=== PATIENT | male | born 1960 | race Caucasian/White ===

== ENCOUNTER 2023-12-07 15:42 | Emergency (ER) | payer MEDICAID, SELFPAY ==
[2023-12-07 15:44] VITALS: BP 107/67; PULSE 76; RESP 18; TEMP 36.9; O2SAT 96; BMI 30.4
--- NOTE | 2023-12-07 15:50 | ED_ITS ---
Documented by User: Justin Yung DO 12/08/23 06:20 HPI - Alcohol 2 General: Chief Complaint: Alcohol Stated Complaint: etoh Time Seen by Provider: 12/07/23 15:50 Source: patient Mode of arrival: EMS History of Present Illness: 63-year-old highly intoxicated male [facility] emergency room via EMS admits to drinking heavily today also admits to drinking on a fairly regular basis. States he was drinking today because of his chronic back pain trying to make it go away he does have a bruise on the left anterior hip. He denies falling. He had called EMS on 911 he states he could not walk but he had walked out to the yard was sitting in the yard when they arrived and walked to the ambulance cot. I observed him self transferring from the ambulance cot to the ER gurney as well. He denies chest pain or shortness of breath. MD complaint: alcohol intoxication Last drink: Just [employer] Chronic alcohol use: Yes Course 2 Vital Signs: Vital signs: Vital Signs Temperature 98.4 F 12/07/23 15:44 Pulse Rate 80 12/07/23 18:22 Respiratory Rate 18 12/07/23 18:22 Blood Pressure 96/63 12/07/23 16:09 Pulse Oximetry 98 12/07/23 18:22 Oxygen Delivery Me thod Room Air 12/07/23 18:22 MDM - Alcohol Medical Decision Making Care signed out to Dr. Nuñez at change of shift. See final notes for diagnosis and disposition. Patient lab work revealed his alcohol level significant elevated at approximately 422. Otherwise findings were pretty benign. He had a chest x- ray, lumbar x-ray and pelvis x-ray all which showed no acute findings. Urinalysis and urine drug screen were negative. Patient be discharged if he can find a ride. Lab Data 12/07/23 16:15 12/07/23 16:15 Radiology Impressions Chest X-Ray 12/07/23 15:55 IMPRESSION: No acute findings. Lumbar Spine X-Ray 12/07/23 15:58 IMPRESSION: No acute findings. Pelvis X-Ray 12/07/23 15:58 IMPRESSION: No acute findings. Laboratory Results WBC 9.99 10^3/uL (3.29-11.43) 12/07/23 16:15 RBC 3.56 10^6/uL (3.85-5.65) L 12/07/23 16:15 Hgb 12.90 g/dL (11.27-16.99) 12/07/23 16:15 Hct 36.4 % (37-53) L 12/07/23 16:15 MCV 102.2 fl (82-101) H 12/07/23 16:15 MCH 36.2 pg (27-33) H 12/07/23 16:15 MCHC 35.4 g/dL (30-55) 12/07/23 16:15 RDW 16.7 % (12.1-15.1) H 12/07/23 16:15 Plt Count 380 10^3/cmm (157-399) 12/07/23 16:15 MPV 9.4 fL (7.4-10.4) 12/07/23 16:15 Neut % (Auto) 51.4 % 12/07/23 16:15 Lymph % (Auto) 36.0 % 12/07/23 16:15 [place] % (Auto) 9.9 % 12/07/23 16:15 Eos % (Auto) 1.4 % 12/07/23 16:15 Baso % (Auto) 1.1 % 12/07/23 16:15 Neut # (Auto) 5.13 10^3/uL (1.8-7.7) 12/07/23 16:15 Lymph # (Auto) 3.6 10^3/uL (0.8-4.8) 12/07/23 16:15 [place] # (Auto) 1.0 10^3/uL (0.2-0.9) H 12/07/23 16:15 Eos # (Auto) 0.1 10^3/uL (0.0-0.8) 12/07/23 16:15 Baso # (Auto) 0.1 10^3/uL (0.0-0.1) 12/07/23 16:15 Nucleated RBC % (auto) 0 % 12/07/23 16:15 Nucleated RBCs # 0.0 /100WBC 12/07/23 16:15 PT 12.80 SECONDS (12.1-14.9) 12/07/23 16:15 INR 0.93 (0.8-1.2) 12/07/23 16:15 APTT 29.4 SECONDS (23.9-36.7) 12/07/23 16:15 Sodium 140 mmol/L (136-145) 12/07/23 16:15 Potassium 3.8 mmol/L (3.5-5.1) 12/07/23 16:15 Chloride 102 mmol/L (98-107) 12/07/23 16:15 Carbon Dioxide 26 mmol/L (22-29) 12/07/23 16:15 Anion Gap 15.8 (5-19) 12/07/23 16:15 BUN 8 mg/dL (8-23) 12/07/23 16:15 Creatinine 0.5 mg/dL (0.7-1.2) L 12/07/23 16:15 GFR Calculation 167.9 mL/min (90-130) H 12/07/23 16:15 Glucose 100 mg/dL (65-115) 12/07/23 16:15 Calculated Osmolality 288 mOsm/kg (285-295) 12/07/23 16:15 Calcium 8.6 mg/dL (8.5-10.5) 12/07/23 16:15 Total Bilirubin 0.2 mg/dL (0.15-1.2) 12/07/23 16:15 AST 28 U/L (0-40) 12/07/23 16:15 ALT 21 U/L (0-41) 12/07/23 16:15 Alkaline Phosphatase 63 U/L (40-130) 12/07/23 16:15 Ammonia 29 umol/L (16-60) 12/07/23 16:15 Total Protein 6.6 g/dL (6.6-8.7) 12/07/23 16:15 Albumin 3.9 g/dL (3.5-5.2) 12/07/23 16:15 Globulin 2.7 g/dL (1.3-4.6) 12/07/23 16:15 Urine Color Yellow (Yellow) 12/07/23 17:43 Urine Appearance Clear (CLEAR) 12/07/23 17:43 Urine pH 5 (5-7) 12/07/23 17:43 Ur Specific [place] 1.015 (1.005-1.030) 12/07/23 17:43 Urine Protein Neg (Negative) 12/07/23 17:43 Urine Glucose (UA) Norm (Normal) 12/07/23 17:43 Urine Ketones Negative (Negative) 12/07/23 17:43 Urine Blood Neg (Negative) 12/07/23 17:43 Urine Nitrate Negative (Negative) 12/07/23 17:43 Urine Bilirubin Neg (Negative) 12/07/23 17:43 Urine Urobilinogen Norm mg/dL (Negative) 12/07/23 17:43 Ur Leukocyte Esterase Negative (Negative) 12/07/23 17:43 Salicylates 0.8 mg/dL (3-10) L 12/07/23 16:15 Urine Opiates Screen Negative ng/mL (Negative) 12/07/23 17:43 Acetaminophen < 5.0 ug/mL (10-30) L 12/07/23 16:15 Ur Barbiturates Screen Negative ng/mL (Negative) 12/07/23 17:43 Ur Phencyclidine Scrn Negative ng/mL (Negative) 12/07/23 17:43 Ur Amphetamines Screen Negative ng/mL (Negative) 12/07/23 17:43 U Benzodiazepines Scrn Negative ng/mL (Negative) 12/07/23 17:43 Urine Cocaine Screen Negative ng/mL (Negative) 12/07/23 17:43 U Marijuana (THC) Screen Negative ng/mL (Negative) 12/07/23 17:43 Ethyl Alcohol 422 mg/dL (0-10) H* 12/07/23 16:15 All radiology interpretation(s) finalized by discharge Discharge Plan Discharge Patient Disposition: Home Clinical Impression: Alcoholic intoxication Condition: Stable Prescriptions: No Action erythromycin 5 mg/gram (0.5 %) ointment 1 applic ophthalmic (eye) Q6H 7 Days Qty: 7 1RF Discharge Orders: Discharge ED (Routine); Ordered 12/07/23 Ordered By: Ciro Nuñez Patient Instructions: Alcohol Intoxication (ED) Activity Restrictions/Additional Instructions: Please limit the use of alcohol. Please follow-up with your family practice physician within the next 7 days for further evaluation and treatment if needed. Coding Level of Care Code ED Dispensing Audiologist for Chg Fwd Documented by User: Ciro StonetDO 12/07/23 18:57 HPI - Alcohol 2 General: Chief Complaint: Alcohol Stated Complaint: etoh Time Seen by Provider: 12/07/23 15:50 Review of Systems 2 General: Reports: 10 or more systems reviewed and unremarkable except in HPI and below Physical Exam 2 Const: COMMON NORMALS: no acute distress, average body habitus, patient oriented x3, no limitations, healthy appearing, alert and well nourished Neck/C-Spine: COMMON NORMALS: no JVD Chest: COMMONS NORMALS: normal inspection of the chest and normal palpation of entire chest wall Resp: COMMON NORMALS: normal respiratory effort, No retractions, No use of accessory muscles and clear to auscultation bilaterally AUSCULTATION: clear to auscultation bilaterally Cardio: COMMON NORMALS: no JVD, regular rate, regular rhythm, S1 normal heart sound present, S2 normal heart sound present, No gallops present (Cardio), No clicks present (Cardio), No murmurs present (Cardio) and No rub (Cardio) R ATE: regular rate RHYTHM: regular rhythm HEART SOUNDS: S1 normal heart sound present and S2 normal heart sound present GI: COMMON NORMALS: Normal to inspection, nondistended, normoactive bowel sounds present, Soft to palpation, non-tender, No hepatosplenomegaly present and no masses PALPATION: Yes Soft to palpation and Yes No hepatosplenomegaly present Neuro: COMMON NORMALS: patient oriented x3 SENSORIUM/ORIENTATION: Yes alert Course 2 Vital Signs: Vital signs: Vital Signs Temperature 98.4 F 12/07/23 15:44 Pulse Rate 80 12/07/23 18:22 Respiratory Rate 18 12/07/23 18:22 Blood Pressure 96/63 12/07/23 16:09 Pulse Oximetry 98 12/07/23 18:22 Oxygen Delivery Me thod Room Air 12/07/23 18:22 MDM - Alcohol Medical Decision Making Patient lab work revealed his alcohol level significant elevated at approximately 422. Otherwise findings were pretty benign. He had a chest x- ray, lumbar x-ray and pelvis x-ray all which showed no acute findings. Urinalysis and urine drug screen were negative. Patient be discharged if he can find a ride. Lab Data 12/07/23 16:15 12/07/23 16:15 Radiology Impressions Chest X-Ray 12/07/23 15:55 IMPRESSION: No acute findings. Lumbar Spine X-Ray 12/07/23 15:58 IMPRESSION: No acute findings. Pelvis X-Ray 12/07/23 15:58 IMPRESSION: No acute findings. Laboratory Results WBC 9.99 10^3/uL (3.29-11.43) 12/07/23 16:15 RBC 3.56 10^6/uL (3.85-5.65) L 12/07/23 16:15 Hgb 12.90 g/dL (11.27-16.99) 12/07/23 16:15 Hct 36.4 % (37-53) L 12/07/23 16:15 MCV 102.2 fl (82-101) H 12/07/23 16:15 MCH 36.2 pg (27-33) H 12/07/23 16:15 MCHC 35.4 g/dL (30-55) 12/07/23 16:15 RDW 16.7 % (12.1-15.1) H 12/07/23 16:15 Plt Count 380 10^3/cmm (157-399) 12/07/23 16:15 MPV 9.4 fL (7.4-10.4) 12/07/23 16:15 Neut % (Auto) 51.4 % 12/07/23 16:15 Lymph % (Auto) 36.0 % 12/07/23 16:15 [place] % (Auto) 9.9 % 12/07/23 16:15 Eos % (Auto) 1.4 % 12/07/23 16:15 Baso % (Auto) 1.1 % 12/07/23 16:15 Neut # (Auto) 5.13 10^3/uL (1.8-7.7) 12/07/23 16:15 Lymph # (Auto) 3.6 10^3/uL (0.8-4.8) 12/07/23 16:15 [place] # (Auto) 1.0 10^3/uL (0.2-0.9) H 12/07/23 16:15 Eos # (Auto) 0.1 10^3/uL (0.0-0.8) 12/07/23 16:15 Baso # (Auto) 0.1 10^3/uL (0.0-0.1) 12/07/23 16:15 Nucleated RBC % (auto) 0 % 12/07/23 16:15 Nucleated RBCs # 0.0 /100WBC 12/07/23 16:15 PT 12.80 SECONDS (12.1-14.9) 12/07/23 16:15 INR 0.93 (0.8-1.2) 12/07/23 16:15 APTT 29.4 SECONDS (23.9-36.7) 12/07/23 16:15 Sodium 140 mmol/L (136-145) 12/07/23 16:15 Potassium 3.8 mmol/L (3.5-5.1) 12/07/23 16:15 Chloride 102 mmol/L (98-107) 12/07/23 16:15 Carbon Dioxide 26 mmol/L (22-29) 12/07/23 16:15 Anion Gap 15.8 (5-19) 12/07/23 16:15 BUN 8 mg/dL (8-23) 12/07/23 16:15 Creatinine 0.5 mg/dL (0.7-1.2) L 12/07/23 16:15 GFR Calculation 167.9 mL/min (90-130) H 12/07/23 16:15 Glucose 100 mg/dL (65-115) 12/07/23 16:15 Calculated Osmolality 288 mOsm/kg (285-295) 12/07/23 16:15 Calcium 8.6 mg/dL (8.5-10.5) 12/07/23 16:15 Total Bilirubin 0.2 mg/dL (0.15-1.2) 12/07/23 16:15 AST 28 U/L (0-40) 12/07/23 16:15 ALT 21 U/L (0-41) 12/07/23 16:15 Alkaline Phosphatase 63 U/L (40-130) 12/07/23 16:15 Ammonia 29 umol/L (16-60) 12/07/23 16:15 Total Protein 6.6 g/dL (6.6-8.7) 12/07/23 16:15 Albumin 3.9 g/dL (3.5-5.2) 12/07/23 16:15 Globulin 2.7 g/dL (1.3-4.6) 12/07/23 16:15 Urine Color Yellow (Yellow) 12/07/23 17:43 Urine Appearance Clear (CLEAR) 12/07/23 17:43 Urine pH 5 (5-7) 12/07/23 17:43 Ur Specific [place] 1.015 (1.005-1.030) 12/07/23 17:43 Urine Protein Neg (Negative) 12/07/23 17:43 Urine Glucose (UA) Norm (Normal) 12/07/23 17:43 Urine Ketones Negative (Negative) 12/07/23 17:43 Urine Blood Neg (Negative) 12/07/23 17:43 Urine Nitrate Negative (Negative) 12/07/23 17:43 Urine Bilirubin Neg (Negative) 12/07/23 17:43 Urine Urobilinogen Norm mg/dL (Negative) 12/07/23 17:43 Ur Leukocyte Esterase Negative (Negative) 12/07/23 17:43 Salicylates 0.8 mg/dL (3-10) L 12/07/23 16:15 Urine Opiates Screen Negative ng/mL (Negative) 12/07/23 17:43 Acetaminophen < 5.0 ug/mL (10-30) L 12/07/23 16:15 Ur Barbiturates Screen Negative ng/mL (Negative) 12/07/23 17:43 Ur Phencyclidine Scrn Negative ng/mL (Negative) 12/07/23 17:43 Ur Amphetamines Screen Negative ng/mL (Negative) 12/07/23 17:43 U Benzodiazepines Scrn Negative ng/mL (Negative) 12/07/23 17:43 Urine Cocaine Screen Negative ng/mL (Negative) 12/07/23 17:43 U Marijuana (THC) Screen Negative ng/mL (Negative) 12/07/23 17:43 Ethyl Alcohol 422 mg/dL (0-10) H* 12/07/23 16:15 Discharge Plan Discharge Patient Disposition: Home Clinical Impression: Alcoholic intoxication Condition: Stable Prescriptions: No Action erythromycin 5 mg/gram (0.5 %) ointment 1 applic ophthalmic (eye) Q6H 7 Days Qty: 7 1RF Discharge Orders: Discharge ED (Routine); Ordered 12/07/23 Ordered By: Ciro Nuñez Patient Instructions: Alcohol Intoxication (ED) Activity Restrictions/Additional Instructions: Please limit the use of alcohol. Please follow-up with your family practice physician within the next 7 days for further evaluation and treatment if needed. Coding Level of Care Code ED Dispensing Audiologist for Fidel Dorman
--- NOTE | 2023-12-07 15:55 | XRR_ITS ---
PROCEDURE INFORMATION: Exam: XR Chest Exam date and time: 12/07/2023 4:33 PM Age: 63 years old Clinical indication: Cough and dyspnea; Additional info: Dyspnea/cough TECHNIQUE: Imaging protocol: Radiologic exam of the chest. Views: 1 view. COMPARISON: CR XR chest 1V [id number] 07/17/2018 9:55 PM FINDINGS: Lungs: Unremarkable. No consolidation. Pleural spaces: Unremarkable. No pleural effusion. No pneumothorax. Heart/Mediastinum: Unremarkable. No cardiomegaly. Bones/joints: Unremarkable. XR/XR chest 1V portable [id number] IMPRESSION: No acute findings.
--- NOTE | 2023-12-07 15:58 | XRR_ITS ---
PROCEDURE INFORMATION: Exam: XR Lumbosacral Spine Exam date and time: 12/07/2023 4:33 PM Age: 63 years old Clinical indication: Injury or trauma; Other: Fall; Patient HX: ETOH. Patient called EMS because he could not walk. patient was waiting for ambulance in the yard when they arrived. PT states he wanted to be checked out for everything. ETOH on board, strong odor from patient TECHNIQUE: Imaging protocol: Radiologic exam of the lumbosacral spine. Views: 2 or 3 views. COMPARISON: CR (PELVIS, ) 12/07/2023 4:33 PM FINDINGS: Bones/joints: Normal. No acute fracture. Normal alignment. Soft tissues: Unremarkable. XR/XR lumbar spine 2-3V* [id number] IMPRESSION: No acute findings.
--- NOTE | 2023-12-07 15:58 | XRR_ITS ---
PROCEDURE INFORMATION: Exam: XR Pelvis Exam date and time: 12/07/2023 4:33 PM Age: 63 years old Clinical indication: Injury or trauma; Fall; Injury details: ETOH. Patient called EMS because he could not walk. patient was waiting for ambulance in the yard when they arrived. PT states he wanted to be checked out for everything. ETOH on board, strong odor from patient TECHNIQUE: Imaging protocol: Radiologic exam of the pelvis. Views: 1 or 2 view. COMPARISON: CR XR lumbar spine 2-3V* [id number] 12/07/2023 4:33 PM FINDINGS: Bones/joints: Unremarkable. No acute fracture. Soft tissues: Unremarkable. XR/XR pelvis 1-2V* [id number] IMPRESSION: No acute findings.
[2023-12-07 16:09] VITALS: BP 96/63; PULSE 74; RESP 16; O2SAT 96
[2023-12-07 16:20] LABS: Basophils # 0.1 10^3/uL (0.0-0.1); Basophils % 1.1 %; Eosinophils # 0.1 10^3/uL (0.0-0.8); Eosinophils % 1.4 %; Hematocrit 36.4 % (37-53); Lymphocytes # 3.6 10^3/uL (0.8-4.8); Mean Corpuscular HGB Conc 35.4 g/dL (30-55); Mean Corpuscular Hemoglobin 36.2 pg (27-33); Mean Corpuscular Volume 102.2 fl (82-101); Mean Platelet Volume 9.4 fL (7.4-10.4); Monocytes % 9.9 %; Neutrophils # 5.13 10^3/uL (1.8-7.7); Neutrophils % 51.4 %; Nucleated Red Blood Cells % 0 %; Platelet Count 380 10^3/cmm (157-399); Red Blood Count 3.56 10^6/uL (3.85-5.65); Red Cell Distribution Width 16.7 % (12.1-15.1); White Blood Count 9.99 10^3/uL (3.29-11.43)
[2023-12-07 16:35] LABS: INR 0.93 (0.8-1.2)
[2023-12-07 16:36] LABS: Partial Thromboplastin Time 29.4 SECONDS (23.9-36.7)
[2023-12-07 16:45] LABS: Ammonia 29 umol/L (16-60)
[2023-12-07 16:47] LABS: Alanine Aminotransferase 21 U/L (0-41); Albumin Level 3.9 g/dL (3.5-5.2); Alkaline Phosphatase 63 U/L (40-130); Anion Gap 15.8 (5-19); Aspartate Amino Transferase 28 U/L (0-40); Blood Urea Nitrogen 8 mg/dL (8-23); Calcium 8.6 mg/dL (8.5-10.5); Carbon Dioxide 26 mmol/L (22-29); Chloride 102 mmol/L (98-107); Creatinine Clr Calc Pharmacy 165.3943; Globulin 2.7 g/dL (1.3-4.6); Glomerular Filtration Rate 167.9 mL/min (90-130); Glucose 100 mg/dL (65-115); Osmolality Calculated 288 mOsm/kg (285-295); Potassium 3.8 mmol/L (3.5-5.1); Salicylate 0.8 mg/dL (3-10); Sodium 140 mmol/L (136-145); Total Bilirubin 0.2 mg/dL (0.15-1.2); Total Protein 6.6 g/dL (6.6-8.7)
[2023-12-07 16:51] LABS: Acetaminophen < 5.0 ug/mL (10-30)
[2023-12-07 16:55] LABS: Alcohol Level 422 mg/dL (0-10)
[2023-12-07 18:03] LABS: Add Urine Microscopic? NO; Charge for UA Resulting for Rev
[2023-12-07 18:10] LABS: Urine Appearance Clear (CLEAR); Urine Color Yellow (Yellow)
[2023-12-07 18:11] LABS: Bilirubin Urine Neg (Negative); Blood Urine Neg (Negative); Glucose Urine UA Norm (Normal); Ketones Urine Negative (Negative); Leukocyte Esterase Urine Negative (Negative); Nitrate Urine Negative (Negative); Protein Urine Neg (Negative); Specific Gravity, Urine 1.015 (1.005-1.030); Urobilinogen Urine Norm (Negative); pH Urine 5 (5-7)
[2023-12-07 18:19] LABS: Amphetamines Screen Urine Negative (Negative); Barbiturates Screen Urine Negative (Negative); Benzodiazepines Screen Urine Negative (Negative); Cocaine Screen Urine Negative (Negative); Opiate Screen Urine Negative (Negative); PCP Screen Urine Negative (Negative); THC Screen Urine Negative (Negative)
[2023-12-07 18:22] VITALS: PULSE 80; RESP 18; O2SAT 98
== END 2023-12-07 20:26 | disposition home or self-care (01) ==
PROVIDERS: Family Medicine; Emergency Provider Emergency Medicine
DX: F10.129 Alcohol abuse with intoxication, unspecified (principal); Y90.8 Blood alcohol level of 240 mg/100 ml or more
CPT/HCPCS: 36415; 71045; 72100; 72170; 80053; 80306; 80307; 81003; 82140; 85025; 85610; 85730; 99284

== ENCOUNTER 2024-10-23 12:11 | Emergency (ER) | payer MEDICAID, SELFPAY ==
[2024-10-23 12:14] VITALS: BP 147/72; PULSE 89; RESP 16; TEMP 36.8; O2SAT 96; BMI 27.3
[2024-10-23 13:20] LABS: Basophils % 0.5 %; Eosinophils # 0.2 10^3/uL (0.0-0.8); Hematocrit 25.9 % (37-53); Lymphocytes # 1.6 10^3/uL (0.8-4.8); Mean Corpuscular HGB Conc 36.7 g/dL (30-55); Mean Corpuscular Hemoglobin 41.9 pg (27-33); Mean Corpuscular Volume 114.1 fl (82-101); Mean Platelet Volume 11.8 fL (7.4-10.4); Monocytes # 0.4 10^3/uL (0.2-0.9); Monocytes % 5.4 %; Neutrophils # 5.25 10^3/uL (1.8-7.7); Neutrophils % 70.6 %; Nucleated Red Blood Cells # 0.1 /100WBC; Nucleated Red Blood Cells % 0.9 %; Platelet Count 201 10^3/cmm (157-399); Red Blood Count 2.27 10^6/uL (3.85-5.65); Red Cell Distribution Width 19.9 % (12.1-15.1); White Blood Count 7.44 10^3/uL (3.29-11.43)
--- NOTE | 2024-10-23 13:27 | ED_ITS ---
HPI - Weakness 2 General: Chief complaint: Weakness Stated complaint: ETOH, Weakness Time Seen by Provider: 10/23/24 13:27 History of Present Illness: 63-year-old male presents to the emergen cy room with complaints of lightheadedness dizziness feeling weak. Area for the last 3 days. Nauseous but no vomiting. Denies chest pain no abdominal discomfort he said some frequency of urination no blood in the urine. No hematochezia or melena. Patient clinically appears acutely intoxicated. Associated symptoms: Denies chest pain, chills, dysuria or fever(s) Review of Systems 2 Const: Denies: fever(s) or chills Card: Denies: chest pain Resp: Denies: dyspnea GI: Denies: abdominal pain : Denies: dysuria, urinary frequency or urinary urgency Musc: Denies: neck pain or back pain Skin/Breast: Denies: rash Physical Exam 2 Const: COMMON NORMALS: no acute distress GENERAL APPEARANCE: cooperative and comfortable ORIENTATION/CONSCIOUSNESS: Yes awake HENMT: COMMON NORMALS: normocephalic, atraumatic and hearing grossly normal bilaterally HEAD & SCALP: normocephalic and atraumatic Resp: COMMON NORMALS: normal respiratory effort, No retractions, No use of accessory muscles and clear to auscultation bilaterally AUSCULTATION: clear to auscultation bilaterally Cardio: COMMON NORMALS: regular rate, regular rhythm and No murmurs present (Cardio) RATE: regular rate RHYTHM: regular rhythm GI: COMMON NORMALS: Soft to palpation and No hepatosplenomegaly present A USCULTATION: Yes normoactive bowel sounds PALPATION: Yes Soft to palpation, No Tenderness to palpation present (GI), No Guarding due to palpation present (GI) and Yes No hepatosplenomegaly present Extremity: COMMON NORMALS: normal to inspection, capillary refill normal, no clubbing, cyanosis or edema, no calf tenderness and no pedal edema Skin: COMMON NORMALS: no rashes or lesions noted GENERAL SKIN EXAM: no rashes or lesions noted Course 2 Vital Signs: Vital signs: Vital Signs Temperature 98.2 F 10/23/24 12:14 Pulse Rate 87 10/23/24 16:55 Respiratory Rate 18 10/23/24 15:43 Blood Pressure 110/71 10/23/24 16:55 Pulse Oximetry 98 10/23/24 16:55 Oxygen Delivery Me thod Room Air 10/23/24 15:43 MDM - Weakness Medical Decision Making Patient does have hypokalemia as well as mild bladder infection. He is discharged home on oral antibiotics. He was given oral potassium supplementation. His anion gap is elevated. Advised him we should probably recheck a basic metabolic profile on him to reevaluate his potassium and his anion gap. He does not wish to do this. We also talked about potassium supplementation which she declined. I think a lot of his dizziness is obviously influenced by his alcohol use suspect he has some long-term development of peripheral neuropathy and cerebellar atrophy as well. Patient prefers to go home at this point will discharge home with potassium supplementation as well as oral antibiotics for bladder infection strongly encouraged patient to pursue programs to help with achieving sobriety. CT head done today was negative. Lab Data 10/23/24 12:50 10/23/24 12:50 Radiology Impressions Chest X-Ray 10/23/24 14:10 IMPRESSION: Stable chest without acute abnormality. Head CT 10/23/24 14:10 IMPRESSION: 1. No evidence of intracranial hemorrhage or mass effect. 2. No acute intracranial findings. Laboratory Results WBC 7.44 10^3/uL (3.29-11.43) 10/23/24 12:50 RBC 2.27 10^6/uL (3.85-5.65) L 10/23/24 12:50 Hgb 9.50 g/dL (11.27-16.99) L 10/23/24 12:50 Hct 25.9 % (37-53) L 10/23/24 12:50 MCV 114.1 fl (82-101) H 10/23/24 12:50 MCH 41.9 pg (27-33) H 10/23/24 12:50 MCHC 36.7 g/dL (30-55) 10/23/24 12:50 RDW 19.9 % (12.1-15.1) H 10/23/24 12:50 Plt Count 201 10^3/cmm (157-399) 10/23/24 12:50 MPV 11.8 fL (7.4-10.4) H 10/23/24 12:50 Neut % (Auto) 70.6 % 10/23/24 12:50 Lymph % (Auto) 21.0 % 10/23/24 12:50 [place] % (Auto) 5.4 % 10/23/24 12:50 Eos % (Auto) 2.0 % 10/23/24 12:50 Baso % (Auto) 0.5 % 10/23/24 12:50 Neut # (Auto) 5.25 10^3/uL (1.8-7.7) 10/23/24 12:50 Lymph # (Auto) 1.6 10^3/uL (0.8-4.8) 10/23/24 12:50 [place] # (Auto) 0.4 10^3/uL (0.2-0.9) 10/23/24 12:50 Eos # (Auto) 0.2 10^3/uL (0.0-0.8) 10/23/24 12:50 Baso # (Auto) 0.0 10^3/uL (0.0-0.1) 10/23/24 12:50 Nucleated RBC % (auto) 0.9 % 10/23/24 12:50 Nucleated RBCs # 0.1 /100WBC 10/23/24 12:50 PT 13.20 SECONDS (12.1-14.9) 10/23/24 12:50 INR 0.93 (0.8-1.2) 10/23/24 12:50 Sodium 135 mmol/L (136-145) L 10/23/24 12:50 Potassium 2.5 mmol/L (3.5-5.1) L* 10/23/24 12:50 Chloride 86 mmol/L (98-107) L 10/23/24 12:50 Carbon Dioxide 22 mmol/L (22-29) 10/23/24 12:50 Anion Gap 29.5 (5-19) H 10/23/24 12:50 BUN 8 mg/dL (8-23) 10/23/24 12:50 Creatinine 0.7 mg/dL (0.7-1.2) 10/23/24 12:50 GFR Calculation 113.9 mL/min (90-130) 10/23/24 12:50 Glucose 89 mg/dL (65-115) 10/23/24 12:50 Calculated Osmolality 278 mOsm/kg (285-295) L 10/23/24 12:50 Calcium 9.0 mg/dL (8.5-10.5) 10/23/24 12:50 Magnesium 1.5 mg/dL (1.7-2.3) L 10/23/24 12:50 Total Bilirubin 0.8 mg/dL (0.15-1.2) 10/23/24 12:50 AST 42 U/L (0-40) H 10/23/24 12:50 ALT 15 U/L (0-41) 10/23/24 12:50 Alkaline Phosphatase 87 U/L (40-130) 10/23/24 12:50 Ammonia 41 umol/L (16-60) 10/23/24 13:57 Total Protein 6.4 g/dL (6.6-8.7) L 10/23/24 12:50 Albumin 3.7 g/dL (3.5-5.2) 10/23/24 12:50 Globulin 2.7 g/dL (1.3-4.6) 10/23/24 12:50 TSH 2.71 uIU/mL (0.27-4.20) 10/23/24 12:50 Urine Color Yellow (Yellow) 10/23/24 15:45 Urine Appearance Clear (CLEAR) 10/23/24 15:45 Urine pH 6.0 (5-7) 10/23/24 15:45 Ur Specific [place] 1.009 (1.005-1.030) 10/23/24 15:45 Urine Protein 1+ (Negative) A 10/23/24 15:45 Urine Glucose (UA) Negative (Normal) 10/23/24 15:45 Urine Ketones 2+ (Negative) H 10/23/24 15:45 Urine Blood 1+ (Negative) A 10/23/24 15:45 Urine Nitrate Negative (Negative) 10/23/24 15:45 Urine Bilirubin Negative (Negative) 10/23/24 15:45 Urine Urobilinogen 1.0 mg/dL (Negative) 10/23/24 15:45 Ur Leukocyte Esterase 2+ (Negative) A 10/23/24 15:45 Urine RBC 3-5 /hpf (0-2) 10/23/24 15:45 Urine WBC 21-50 /hpf (0-5) H 10/23/24 15:45 Ur Squamous Epith Cells 0-5 /hpf (0-5) 10/23/24 15:45 Amorphous Sediment Not Reportable 10/23/24 15:45 Urine Bacteria None seen /hpf (NONE) 10/23/24 15:45 Hyaline Casts 9.51 /lpf 10/23/24 15:45 Ethyl Alcohol 186 mg/dL (0-10) H 10/23/24 12:50 Ethyl Alcohol 186 mg/dL (0-10) H 10/23/24 12:50 All radiology interpretation(s) finalized by discharge Discharge Plan Discharge Patient Disposition: Home Clinical Impression: Alcoholic peripheral neuropathy, Acquired cerebellar atrophy, Hypokalemia, Cystitis, Acute alcohol intoxication Condition: Stable Prescriptions: New potassium chloride 20 mEq tablet extended release 20 meq PO BID Qty: 10 0RF Discharge Orders: Discharge ED (Routine); Ordered 10/23/24 Ordered By: Justin Yung Discharge Diet: Usual diet Discharge Activity: Increase activity as tolerated Patient Instructions: Alcohol Abuse, Alcohol Use Disorder (ED), Opioid Safety, Pain Management Activity Restrictions/Additional Instructions: Thank you for choosing [facility] for your healthcare needs today. It is very important that you follow up as instructed or that you return to the Emergency Department should you have concerns or if your condition changes or worsens in any way. You were seen in the emergency room with complaints of dizziness difficulty walking. At the time you are seen your acutely intoxicated this certainly would contribute to those problems. Given your history of alcohol use think you do likely have some alcoholic peripheral neuropathy and cerebellar atrophy as a result of alcohol use. You are also noted to have a mild bladder infection for which she was given antibiotic and potassium was low for which you are given a supplement in the emergency room and p.o. supplements to take at home. Abstain from alcohol Coding Level of Care Code ED Reserve Operator for Chg Fwd Related Data Previous Rx's Medication Instructions Recorded potassium chloride 20 mEq 20 meq PO BID #10 tabs 10/23/24 tablet,extended release Allergies Allergy/AdvReac Type Severity Reaction Status Date / Time No Known Allergies Allergy Verified 08/27/23 13:18
[2024-10-23 13:48] LABS: Alanine Aminotransferase 15 U/L (0-41); Albumin Level 3.7 g/dL (3.5-5.2); Alcohol Level 186 mg/dL (0-10); Alkaline Phosphatase 87 U/L (40-130); Anion Gap 29.5 (5-19); Aspartate Amino Transferase 42 U/L (0-40); Blood Urea Nitrogen 8 mg/dL (8-23); Carbon Dioxide 22 mmol/L (22-29); Chloride 86 mmol/L (98-107); Creatinine Clr Calc Pharmacy 112.5954; Globulin 2.7 g/dL (1.3-4.6); Glomerular Filtration Rate 113.9 mL/min (90-130); Glucose 89 mg/dL (65-115); Magnesium 1.5 mg/dL (1.7-2.3); Osmolality Calculated 278 mOsm/kg (285-295); Sodium 135 mmol/L (136-145); Thyroid Stimulating Hormone 2.71 uIU/mL (0.27-4.20); Total Bilirubin 0.8 mg/dL (0.15-1.2); Total Protein 6.4 g/dL (6.6-8.7)
[2024-10-23 13:51] LABS: Potassium 2.5 mmol/L (3.5-5.1)
[2024-10-23 14:00] LABS: INR 0.93 (0.8-1.2)
[2024-10-23 14:03] LABS: Alcohol Level 186 mg/dL (0-10)
--- NOTE | 2024-10-23 14:10 | XR_ITS ---
WS: [id number] XR chest 1V portable [id number] REASON FOR EXAM: dyspnea/cough FINDINGS: The chest is unchanged compared to 12/07/2023. Moderate tortuosity and ectasia of the thoracic aorta. Normal heart size. Eventration of the right hemidiaphragm. Calcified granulomatous disease bilaterally. No acute pulmonary parenchymal or pleural findings. Multiple old healed rib fractures on the right. Mild scoliosis and degenerative spondylosis in the thoracic spine. XR/XR chest 1V portable [id number] IMPRESSION: Stable chest without acute abnormality.
--- NOTE | 2024-10-23 14:10 | ECG_ITS ---
[facility]24-[facility]23 Pat Name: Yannick Miles Department: Room: Gender: Male Continuous Miner: : 1960 Requested By: Justin George Order Number: [id number] Reading MD: JEAN CALZADA Measurements Intervals [place] Rate: 80 P: 81 [place]: 137 QRS: -48 QRSD: 108 T: 80 QT: 398 QTc: 460 Interpretive Statements SINUS RHYTHM LEFT AXIS DEVIATION [QRS AXIS < -30] Compared to ECG 07/18/2018 11:10:39 Left-axis deviation now present Sinus tachycardia no longer present Electronically Signed On 10-25-2024 23:29:28 SAFETY ATTENDANT by JEAN CALZADA [email or web address]
--- NOTE | 2024-10-23 14:10 | CT_ITS ---
WS: [id number] CT HEAD TECHNIQUE: Noncontrast CT of the head obtained from the skullbase to the vertex. CLINICAL INFORMATION: doziness COMPARISON: 2019 DLP: 1040.[address] scans at [facility] use at least one of these dose optimization techniques: automated e xposure control; mA and/or kV adjustment per patient size (includes targeted exams where dose is matc hed to clinical indication); or iterative reconstruction. FINDINGS: No evidence of intracranial hemorrhage or mass effect. Ventricular system and basal cisterns are rojas nt. Mild small vessel changes with mild parenchymal volume loss. No extra-axial fluid collections. No evidence of mass or mass effect. Paranasal sinuses and mastoid air cells are well aerated. .Normal visualized soft tissues. Vascular c alcification. CT/CT head wo con* [id number] IMPRESSION: 1. No evidence of intracranial hemorrhage or mass effect. 2. No acute intracranial findings.
[2024-10-23] MEDS: potassium chloride oral liq 20 mEq/15 mL UDC 60 MEQ PO (14:27)
[2024-10-23 14:45] LABS: Ammonia 41 umol/L (16-60)
[2024-10-23 15:43] VITALS: BP 110/73; RESP 18; O2SAT 95
[2024-10-23 15:59] LABS: Bilirubin Urine Negative (Negative); Blood Urine 1+ (Negative); Glucose Urine UA Negative (Normal); Ketones Urine 2+ (Negative); Leukocyte Esterase Urine 2+ (Negative); Nitrate Urine Negative (Negative); Protein Urine 1+ (Negative); Specific Gravity, Urine 1.009 (1.005-1.030); Urine Appearance Clear (CLEAR); Urine Color Yellow (Yellow)
[2024-10-23 16:02] LABS: Add Urine Microscopic? YES; Bacteria Urine None Seen /hpf; Hyaline Casts Urine 9.51 /lpf; Squamous Epithelial Cell Urine 0-5 /hpf (0-5); WBC Urine 21-50 /hpf (0-5)
[2024-10-23 16:20] LABS: UA Slide Review UA Slide Review Perf
[2024-10-23 16:21] LABS: Add Urine Culture? Yes
[2024-10-23 16:55] VITALS: BP 110/71; PULSE 87; O2SAT 98
== END 2024-10-23 16:56 | disposition home or self-care (01) ==
PROVIDERS: Emergency Medicine; Emergency Provider Family Medicine
DX: G62.1 Alcoholic polyneuropathy (principal); G31.89 Other specified degenerative diseases of nervous system; E87.6 Hypokalemia; N30.90 Cystitis, unspecified without hematuria; F10.129 Alcohol abuse with intoxication, unspecified; Y90.6 Blood alcohol level of 120-199 mg/100 ml
CPT/HCPCS: 36415; 70450; 71045; 80053; 80307; 81001; 82140; 83735; 84443; 85025; 85610; 87086; 93005; 99285

== ENCOUNTER 2024-10-23 21:28 | Emergency (ER) | payer MEDICAID, SELFPAY ==
[2024-10-23 21:28] VITALS: BP 125/75; PULSE 89; RESP 16; TEMP 36.6; O2SAT 100; BMI 25.8
--- NOTE | 2024-10-23 21:46 | ED_ITS ---
HPI - Fall General: Chief Complaint: Fall Stated Complaint: ETOH Time Seen by Provider: 10/23/24 21:42 History of Present Illness: Presents to the ER after falling at home on his bottom. He comes in by EMS. He said he slipped on the ice on the road. Patient Nuys any complaints at this time and says he can get up and walk with no pain. He thought he might need to be checked out. Patient denies any alcohol consumption today. He said he did buy some whiskey but he was not able to drink it before he fell. Related Data Previous Rx's Medication Instructions Recorded cefdinir 300 mg capsule 300 mg PO BID 5 days #10 caps 10/23/24 potassium chloride 20 mEq 20 meq PO BID #10 tabs 10/23/24 tablet,extended release Allergies Allergy/AdvReac Type Severity Reaction Status Date / Time No Known Allergies Allergy Verified 08/27/23 13:18 Review of Systems General: Reports: 10 or more systems reviewed and unremarkable except in HPI and below Physical Exam Const: COMMON NORMALS: no acute distress, average body habitus, patient oriented x3, no limitations, healthy appearing, alert and well nourished HENMT: COMMON NORMALS: normocephalic, atraumatic, hearing grossly normal bilaterally, external ears normal, Normal external nose present and moist oral mucous membranes HEAD & SCALP: normocephalic and atraumatic NOSE: Normal external nose present EXTERNAL EAR: Yes external ears normal Eye: COMMON NORMALS: Equal, round and reactive pupils present, EOMs intact bilaterally, conjunctivae normal and no scleral icterus CONJUNCTIVA: Yes conjunctivae normal PUPIL: Yes Equal, round and reactive pupils present Neck/C-Spine: COMMON NORMALS: full ROM, no lymphadenopathy, supple, no meningeal signs, no JVD and Thyroid normal THYROID: Thyroid normal Chest: COMMONS NORMALS: normal inspection of the chest and normal palpation of entire chest wall Resp: COMMON NORMALS: normal respiratory effort, No retractions, No use of accessory muscles and clear to auscultation bilaterally AUSCULTATION: clear to auscultation bilaterally Cardio: COMMON NORMALS: no JVD, regular rate, regular rhythm, S1 normal heart sound present, S2 normal heart sound present, No gallops present (Cardio), No clicks present (Cardio), No murmurs present (Cardio) and No rub (Cardio) RATE: regular rate RHYTHM: regular rhythm HEART SOUNDS: S1 normal heart sound present and S2 normal heart sound present GI: COMMON NORMALS: Normal to inspection, nondistended, normoactive bowel sounds present, Soft to palpation, non-tender, No hepatosplenomegaly present and no masses PALPATION: Yes Soft to palpation and Yes No hepatosplenomegaly present Neuro: COMMON NORMALS: patient oriented x3 SENSORIUM/ORIENTATION: Yes alert MENINGEAL SIGNS: Yes no meningeal signs Course Vital Signs: Vital signs: Vital Signs Temperature 97.9 F 10/23/24 21:28 Pulse Rate 89 10/23/24 21:28 Respiratory Rate 16 10/23/24 21:28 Blood Pressure 125/75 10/23/24 21:28 Pulse Oximetry 100 10/23/24 21:28 Oxygen Delivery Me thod Room Air 10/23/24 21:28 MDM - Fall Medical Decision Making Patient had benign physical exam, he has no complaints, patient be discharged home. Medical Records I reviewed the patient's medical records. Lab Data I reviewed the patient's lab results. No radiology studies performed this visit Discharge Plan Discharge Patient Disposition: Home Clinical Impression: Fall Condition: Stable Prescriptions: No Action potassium chloride 20 mEq tablet extended release 20 meq PO BID Qty: 10 0RF cefdinir 300 mg capsule 300 mg PO BID 5 Days Qty: 10 0RF Discharge Orders: Discharge ED (Routine); Ordered 10/23/24 Ordered By: Ciro Nuñez Patient Instructions: Fall Prevention for Older Adults (ED) Activity Restrictions/Additional Instructions: Thank you for choosing [facility] for your healthcare needs today. Please realize that you were seen in the emergency department and that we are providing you with an emergency medical screening exam and this may not be a complete and all exclusive of all testing and/or medical workup we may need to determine your element or severity of your illness. It is very important that you follow-up as instructed with your primary care provider or specialist for the additional evaluation and to discuss your medical treatment plan. You may return to the emergency department should you have concerns or if your condition changes or worsens in any way. Coding Level of Care Code ED Equity Analyst for Fidel Dorman
[2024-10-23 22:09] VITALS: BP 117/78; PULSE 88; O2SAT 100
== END 2024-10-23 22:05 | disposition home or self-care (01) ==
PROVIDERS: Emergency Provider Emergency Medicine
DX: Z03.89 Encounter for observation for other suspected diseases and conditions ruled out (principal)
CPT/HCPCS: 99281

== ENCOUNTER 2025-01-08 23:40 | Inpatient (IN) | payer MEDICAID, SELFPAY ==
[2025-01-08 23:42] VITALS: BP 71/53; PULSE 117; RESP 16; TEMP 36.3; O2SAT 94
--- NOTE | 2025-01-08 23:44 | ECG_ITS ---
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 Measurements Intervals [place] Rate: 118 P: 68 ME: 142 QRS: 78 QRSD: 85 T: 68 QT: 324 QTc: 454 Interpretive Statements SINUS TACHYCARDIA LOW QRS VOLTAGE [QRS DEFLECTION < 0.5/1.0 mV IN LIMB/CHEST LEADS] MINIMAL ST DEPRESSION [0.025+ mV ST DEPRESSION] Compared to ECG 10/23/2024 14:28:51 Low QRS voltage now present ST (T wave) deviation now present Sinus rhythm no longer present Left-axis deviation no longer present Electronically Signed On 01-09-2025 17:34:33 CDT by Abhishek Greene M.D. [id number]
--- NOTE | 2025-01-08 23:44 | XRR_ITS ---
PROCEDURE INFORMATION: Exam: XR Chest Exam date and time: 01/08/2025 11:55 PM Age: 64 years old Clinical indication: Shortness of breath TECHNIQUE: Imaging protocol: Radiologic exam of the chest. Views: 1 view. COMPARISON: CR XR chest 1V portable [id number] 10/23/2024 2:28 PM FINDINGS: Lungs: No consolidation. Pleural spaces: No pleural effusion. No pneumothorax. Heart/Mediastinum: No cardiomegaly. Bones/joints: No acute findings. XR/XR chest 1V portable [id number] IMPRESSION: No acute chest findings.
[2025-01-08 23:52] VITALS: BP 71/53; PULSE 117; RESP 16; O2SAT 94
[2025-01-09] VITALS (158 sets, daily range): BP systolic 67–181; BP diastolic 44–152; PULSE 80–112; RESP 16–40; TEMP 36.2–36.8; O2SAT 71–100
--- NOTE | 2025-01-09 00:07 | ED_ITS ---
HPI - Abdominal Pain 2 General: Chief Complaint: Abdominal Pain Stated Complaint: abdomen pain, sob Time Seen by Provider: 01/08/25 23:44 History of Present Illness: 64-year-old man with history of renal fa ilure, alcohol dependence, COPD, hypertension, heart failure, tobacco dependence, and a history of TBI who presents to the emergency room by ambulance with shortness of breath and abdominal distention. No known history of cirrhosis. His abdomen does seem quite distended. No focal pain but he is diffusely slightly tender. EMS reported his O2 sats were in the 70s when they got him but when he is here he is 94% on room air. Related Data Previous Rx's ?Medication ?Instructions ?Recorded potassium chloride 20 mEq 20 meq PO BID #10 tabs 10/23 tablet,extended release Allergies Allergy/AdvReac Type Severity Reaction Status Date / Time No Known Allergies Allergy Verified 01/08/25 23:52 Review of Systems 2 Narrative: Constitutional symptoms: Negative except as documented in HPI. Skin symptoms: Negative except as documented in HPI. Eye symptoms: Negative except as documented in HPI. ENMT symptoms: Negative except as documented in HPI. Respiratory symptoms: Negative except as documented in HPI. Cardiovascular symptoms: Negative except as documented in HPI. Gastrointestinal symptoms: Negative except as documented in HPI. Genitourinary symptoms: Negative except as documented in HPI. Musculoskeletal symptoms: Negative except as documented in HPI. Neurologic symptoms: Negative except as documented in HPI. Psychiatric symptoms: Negative except as documented in HPI. Endocrine symptoms: Negative except as documented in HPI. Physical Exam 2 Narrative: EXAM NARRATIVE: General: Alert, no acute distress. Skin: Warm, dry. Head: Normocephalic, atraumatic. Neck: Supple, trachea midline. Eye: Extraocular movements are intact. Ears, nose, mouth and throat: mucosa moist. Cardiovascular: Regular, tachycardic, normal peripheral perfusion. Patient has edema and venous stasis dermatitis of his lower legs. Respiratory: Coarse lung sounds, mild tachypnea. Gastrointestinal: Soft, distended, no focal tenderness but diffusely moderately tender Musculoskeletal: Normal ROM, no deformity. Neurological: Alert and oriented, No focal neurological deficit observed. Psychiatric: Cooperative, appropriate mood & affect. Course 2 Vital Signs: Vital signs: Vital Signs Temperature 97.4 F L 01/08/25 23:42 Pulse Rate 104 H 01/09/25 03:00 Respiratory Rate 16 01/08/25 23:52 Blood Pressure 112/57 01/09/25 03:00 Pulse Oximetry 94 01/09/25 03:00 Oxygen Delivery Me thod Room Air 01/08/25 23:42 MDM - Abdominal Pain Medical Decision Making EKG: Time 2349. Rate 118. Sinus tachycardia, No ST-T changes, no ectopy, normal MD & QRS intervals, This was reviewed and interpreted by myself the ER physician at 2353. Chest x-ray: No acute process. No infiltrate. No pneumothorax. This was reviewed and interpreted by myself the emergency room physician. I also reviewed the radiology report. Lab Review: Laboratory results were reviewed and interpreted by myself the emergency room physician. Patient has significant leukocytosis and significant lactic acidosis which would indicate sepsis. He is being treated as such. He also has some acute renal failure with a BUN/creatinine of 50 and 2.6. Rivera catheter has been changed and he is not making much urine so we have not been able to send the urinalysis yet. Ammonia is elevated at 100. CT of the chest without contrast: Tiny bilateral tree-in-bud nodules suspicious for multifocal atypical infection. Pulmonary nodule. This was reviewed and interpreted by myself the emergency room physician. I also reviewed the radiology report. CT of the abdomen pelvis without contrast: Cirrhosis. Cholelithiasis. Large volume ascites. This was reviewed and interpreted by myself the emergency room physician. I also reviewed the radiology report. I reviewed the patient's medical record. Reexamination: Patient's blood pressures stabilized in the 100-1 15 range systolic. He is had no altered mental status. Despite his ammonia of 100 he does not seem to be incredibly encephalopathic. No oxygen requirements. Consultation: I spoke with Dr. Campuzano who agrees to admission. Assessment and plan: Sepsis Lactic acidosis Hypotension Acute renal insufficiency Cirrhosis Ascites Abdominal pain Possible SBP Chronic indwelling Rivera catheter Chronic urinary retention Hyperammonemia Pulmonary nodule ?Unclear source of sepsis. Possibly his urine although we have not gotten any yet. Also possibly spontaneous bacterial peritonitis. He has diffuse tenderness with ascites. -2 L normal saline bolus. Fluid volumes based on ideal body weight. And limited somewhat secondary to his already large volume ascites. And edema. -Broad-spectrum antibiotics were administered. Zyvox and meropenem. -Sepsis quality measures. -Lactic acid with a reflex was ordered. -Blood cultures were ordered.\ ?Rivera catheter was replaced and is now draining a small amount of urine. ?Ammonia is quite elevated but patient does not really have any signs or symptoms of hepatic encephalopathy. No asterixis. ?Likely will need therapeutic and diagnostic paracentesis. However like for him to stabilize more before therapeutic and his blood pressure be better under control so I will hold off on a diagnostic at this time to minimize number of procedures. -I discussed the patient with the hospitalist on-call who is admitting the patient. - Discussed findings and plan with patient. Answered any questions. - All laboratory values were reviewed and interpreted personally by myself, the ER physician - All imaging was reviewed and interpreted personally by myself, the ER physician. - Evaluation and treatment of this problem were appropriate in the emergency setting Critical care -I spent a total of >35 minutes of critical care time managing the patient, independent of any other practitioner. -The time involved in the performance of separately reportable procedures was not counted towards critical care time. Lab Data 01/09/25 00:09 01/09/25 00:09 Labs/Radiology: Radiology Impressions Chest X-Ray 01/08/25 23:44 IMPRESSION: No acute chest findings. Chest/Abdomen/Pelvis CT 01/09/25 00:26 IMPRESSION: 1. Tiny bilateral tree-in-bud nodules suspicious for multifocal atypical infection. 2. There is a 4 mm right lower lobe lung nodule. Recommend follow-up CT in 12 months as per Fleischner society guidelines. IMPRESSION: 1. Cirrhosis. 2. Cholelithiasis. 3. Large volume ascites. 4. Tiny nonobstructing renal stones. Laboratory Results WBC 25.12 10^3/uL (3.29-11.43) H 01/09/25 00:09 RBC 4.06 10^6/uL (3.85-5.65) 01/09/25 00:09 Hgb 12.10 g/dL (11.27-16.99) 01/09/25 00:09 Hct 37.5 % (37-53) 01/09/25 00:09 MCV 92.4 fl (82-101) 01/09/25 00:09 MCH 29.8 pg (27-33) 01/09/25 00:09 MCHC 32.3 g/dL (30-55) 01/09/25 00:09 RDW 15.7 % (12.1-15.1) H 01/09/25 00:09 Plt Count 435 10^3/cmm (157-399) H 01/09/25 00:09 MPV 10.8 fL (7.4-10.4) H 01/09/25 00:09 Lymph % (Auto) Not Reportable 01/09/25 00:09 [place] % (Auto) Not Reportable 01/09/25 00:09 Lymph # (Auto) Not Reportable 01/09/25 00:09 [place] # (Auto) Not Reportable 01/09/25 00:09 Total Counted 100 (0-100) 01/09/25 00:09 Atypical Lymphs % Not Reportable 01/09/25 00:09 Absolute Neutrophils 23.6 10^3/cmm (1.4-6.5) H 01/09/25 00:09 Segmented Neutrophils 80 % 01/09/25 00:09 Band Neutrophils 14.0 % 01/09/25 00:09 Lymphocytes (Manual) 4 % 01/09/25 00:09 Monocytes (Manual) 2.0 % 01/09/25 00:09 Absolute Monocytes 0.5 10^3/cmm (0.1-0.6) 01/09/25 00:09 Eosinophils (Manual) 0 % 01/09/25 00:09 Absolute Eosinophils 0.0 10^3/cmm (0.0-0.7) 01/09/25 00:09 Basophils (Manual) 0.0 % 01/09/25 00:09 Absolute Basophils 0.0 10^3/cmm (0.0-0.2) 01/09/25 00:09 Platelet Estimate Increased (Normal) 01/09/25 00:09 PT 23.80 SECONDS (12.1-14.9) H 01/09/25 00:09 INR 1.99 (0.8-1.2) H 01/09/25 00:09 APTT 35.5 SECONDS (23.9-36.7) 01/09/25 00:09 Specimen Type Arterial 01/09/25 00:02 Sample Site Brachial, left 01/09/25 00:02 ABG pH 7.44 (7.35-7.45) 01/09/25 00:02 ABG pCO2 20.3 mmHg (35-45) L 01/09/25 00:02 ABG pO2 63.1 mmHg (80.0-100.0) L 01/09/25 00:02 ABG PO2/FiO2 Ratio 300 01/09/25 00:02 ABG HCO3 13.6 mmol/L (22-26) L 01/09/25 00:02 ABG O2 Saturation 93.4 01/09/25 00:02 ABG Base Excess -8.6 mmol/L (-2.0-2.0) L 01/09/25 00:02 Yannick Test N/a 01/09/25 00:02 A-a O2 Gradient 7.7 mmHg (5-10) 01/09/25 00:02 Hematocrit 36.8 % (42-52) L 01/09/25 00:02 Hgb O2 Saturation 92.3 % (95-100) L 01/09/25 00:02 Carboxyhemoglobin 1.2 %THgb (0.4-20.1) 01/09/25 00:02 Methemoglobin 0.0 % (0.4-1.5) L 01/09/25 00:02 Total Hemoglobin 12.0 g/dL (14-18) L 01/09/25 00:02 Sodium 127.0 mmol/L (131-143) L 01/09/25 00:02 Potassium 4.8 mmol/L (3.5-5.0) 01/09/25 00:02 Glucose 114.0 mg/dL (70-115) 01/09/25 00:02 Ionized Calcium 1.1 mmol/L (1.1-1.4) 01/09/25 00:02 O2 Delivery Device Room air 01/09/25 00:02 FiO2 21.0 % 01/09/25 00:02 District Service Manager ID [email or web address] 01/09/25 00:02 Sodium 130 mmol/L (136-145) L 01/09/25 00:09 Potassium 5.4 mmol/L (3.5-5.1) H 01/09/25 00:09 Chloride 96 mmol/L (98-107) L 01/09/25 00:09 Carbon Dioxide 14 mmol/L (22-29) L 01/09/25 00:09 Anion Gap 25.4 (5-19) H 01/09/25 00:09 BUN 49 mg/dL (8-23) H 01/09/25 00:09 Creatinine 2.6 mg/dL (0.7-1.2) H 01/09/25 00:09 GFR Calculation 25.0 mL/min (90-130) L 01/09/25 00:09 Glucose 107 mg/dL (65-115) 01/09/25 00:09 Calculated Osmolality 283 mOsm/kg (285-295) L 01/09/25 00:09 Lactic Acid 7.4 mmol/L (0.5-2.2) H* 01/09/25 00:09 Lactic Acid (Sepsis) 7.3 mmol/L (0.5-2.2) H* 01/09/25 01:48 Calcium 8.1 mg/dL (8.5-10.5) L 01/09/25 00:09 Total Bilirubin 0.7 mg/dL (0.15-1.2) 01/09/25 00:09 AST 29 U/L (0-40) 01/09/25 00:09 ALT 19 U/L (0-41) 01/09/25 00:09 Alkaline Phosphatase 208 U/L (40-130) H 01/09/25 00:09 Ammonia 101 umol/L (16-60) H 01/09/25 00:00 Troponin T Baseline 29 ng/L (0-15) H 01/09/25 00:09 Troponin T 120 Minute 28.16 ng/L (0-15) H 01/09/25 01:48 Delta Troponin T -0.84 ABS# (0-10) L 01/09/25 01:48 C-Reactive Protein 159.1 mg/L (0.0-4.9) H 01/09/25 00:09 NT-Pro-B Natriuret Pep 1991 pg/mL (0-125) H 01/09/25 00:09 Total Protein 5.5 g/dL (6.6-8.7) L 01/09/25 00:09 Albumin 2.1 g/dL (3.5-5.2) L 01/09/25 00:09 Globulin 3.4 g/dL (1.3-4.6) 01/09/25 00:09 Procalcitonin 3.00 ng/mL (0-0.5) H 01/09/25 00:09 Influenza A (PCR) Negative (Negative) 01/09/25 01:12 Influenza Type B (PCR) Negative (Negative) 01/09/25 01:12 RSV (PCR) Negative (Negative) 01/09/25 01:12 SARS-CoV-2 (PCR) Negative (Negative) 01/09/25 01:12 All radiology interpretation(s) finalized by discharge Discharge Plan Discharge Patient Disposition: Admitted As Inpatient Clinical Impression: Sepsis, Cirrhosis, Hyperammonemia, Ascites, Hypotension, Acute renal insufficiency, Chronic indwelling Rivera catheter, Urinary retention, Lactic acidosis, Incidental pulmonary nodule Condition: Stable Coding Level of Care Code ED Seed Corn Manager Production for Fidel Dorman
[2025-01-09] MEDS: sodium chloride 0.9% 500 ML 999 ML IV ×2 (00:08→01:45)
[2025-01-09] MEDS: methylPREDNISolone sod succ 125 mg/2 mL INJ IVP (00:09)
[2025-01-09 00:16] LABS: ABG PCO2 20.3 mmHg (35-45); ABG PH Result 7.44 (7.35-7.45); Alveolar-Arterial Oxygen Gradi 7.7 mmHg (5-10); Arterial Blood Gas Hematocrit 36.8 % (42-52); Base Excess ABG -8.6 mmol/L (-2.0-2.0); Blood Gas Sample Type Arterial; Carboxyhemoglobin 1.2 %THgb (0.4-20.1); HCO3 ABG 13.6 mmol/L (22-26); HGB O2 Sat 92.3 % (95-100); Ionized Calcium Level - ABG 1.1 mmol/L (1.1-1.4); Oxygen Saturation ABG 93.4; PO2 ABG 63.1 mmHg (80.0-100.0); Potassium Level - ABG 4.8 mmol/L (3.5-5.0)
[2025-01-09 00:18] LABS: Blood Gas Operator Identificat jlb; Blood Gas Sample Site Brachial, left; Oxygen Device ROOM AIR; PO2 FiO2 Ratio Arterial Blood 300
[2025-01-09 00:26] LABS: Hematocrit 37.5 % (37-53); Mean Corpuscular HGB Conc 32.3 g/dL (30-55); Mean Corpuscular Hemoglobin 29.8 pg (27-33); Mean Corpuscular Volume 92.4 fl (82-101); Mean Platelet Volume 10.8 fL (7.4-10.4); Platelet Count 435 10^3/cmm (157-399); Red Blood Count 4.06 10^6/uL (3.85-5.65); Red Cell Distribution Width 15.7 % (12.1-15.1); White Blood Count 25.12 10^3/uL (3.29-11.43)
--- NOTE | 2025-01-09 00:26 | CTR_ITS ---
PROCEDURE INFORMATION: Exam: CT Chest Without Contrast; Diagnostic Exam date and time: 01/09/2025 1:24 AM Age: 64 years old Clinical indication: Other: Sepsis; Shortness of breath TECHNIQUE: Imaging protocol: Diagnostic computed tomography of the chest without contrast. Radiation optimization: All CT scans at this facility use at least one of these dose optimization techniques: automated exposure control; mA and/or kV adjustment per patient size (includes targeted exams where dose is matched to clinical indication); or iterative reconstruction. COMPARISON: CR (CHEST, ) 01/08/2025 11:55 PM RADIATION DOSE METRICS: Total DLP (mGy-cm): 0.01 FINDINGS: Lungs: Mild bronchial wall thickening and bronchiectasis worst in the lower lungs. Tiny tree-in-bud nodules scattered in both lungs. Right lower lobe lung nodule, 4 mm. Pleural spaces: Trace right pleural effusion with atelectasis. Heart: Unremarkable. No cardiomegaly. No pericardial effusion. Coronary arteries: Coronary calcifications. Lymph nodes: Unremarkable. No enlarged lymph nodes. Vasculature: Unremarkable. No aortic aneurysm. Bones/joints: Old rib fractures. Soft tissues: Unremarkable. PROCEDURE INFORMATION: Exam: CT Abdomen And Pelvis Without Contrast Exam date and time: 01/09/2025 1:24 AM Age: 64 years old Clinical indication: Other: Sepsis; Shortness of breath TECHNIQUE: Imaging protocol: Computed tomography of the abdomen and pelvis without contrast. Radiation optimization: All CT scans at this facility use at least one of these dose optimization techniques: automated exposure control; mA and/or kV adjustment per patient size (includes targeted exams where dose is matched to clinical indication); or iterative reconstruction. COMPARISON: CR XR pelvis 1-2V* [id number] 12/07/2023 4:33 PM RADIATION DOSE METRICS: Total DLP (mGy-cm): 783 FINDINGS: Liver: Cirrhosis. 1.7 cm hepatic segment 4A cyst. Gallbladder and biliary ducts: Cholelithiasis. Pancreas: Unremarkable. Spleen: Small spleen. Adrenal glands: Unremarkable. Kidneys and ureters: Nonobstructing bilateral renal stones measuring up to 3 mm. No hydronephrosis. Stomach and bowel: Sigmoid diverticula. Small fecal load. No bowel obstruction. Appendix: The appendix is not seen. Intraperitoneal space: Large volume ascites. Vasculature: Calcified atherosclerosis. Lymph nodes: No enlarged lymph nodes. Urinary bladder: Rivera catheter in the decompressed urinary bladder. Reproductive: No obvious abnormality. Bones/joints: No acute fracture. Soft tissues: Unremarkable. CT/[place] [id number] IMPRESSION: 1. Tiny bilateral tree-in-bud nodules suspicious for multifocal atypical infection. 2. There is a 4 mm right lower lobe lung nodule. Recommend follow-up CT in 12 months as per Fleischner society guidelines. IMPRESSION: 1. Cirrhosis. 2. Cholelithiasis. 3. Large volume ascites. 4. Tiny nonobstructing renal stones.
[2025-01-09 00:42] LABS: INR 1.99 (0.8-1.2)
[2025-01-09 00:51] LABS: Troponin(5th) Baseline 29 ng/L (0-15)
[2025-01-09 00:58] LABS: Lactic Sepsis W/Reflex 7.4 mmol/L (0.5-2.2)
[2025-01-09 01:01] LABS: NT Pro B Type Natriuretic Pept 1991 pg/mL (0-125)
[2025-01-09 01:07] LABS: Partial Thromboplastin Time 35.5 SECONDS (23.9-36.7); Slide Review Slide Review Perform
[2025-01-09 01:08] LABS: Absolute Neutrophil 23.6 10^3/cmm (1.4-6.5); Absolute Segmented Neutrophil 20.1 10/cmm (1.6-7.1); Band Neutrophils Absolute 3.5 10^3/cmm (0.0-1.2); Eosinophils 0 %; Lymphocytes 4 %; Monocytes Absolute 0.5 10^3/cmm (0.1-0.6); Platelet Estimate Increased (Normal); Segmented Neutrophils 80 %; Total Cells Counted 100 (0-100)
[2025-01-09 01:12] LABS: Alanine Aminotransferase 19 U/L (0-41); Albumin Level 2.1 g/dL (3.5-5.2); Alkaline Phosphatase 208 U/L (40-130); Aspartate Amino Transferase 29 U/L (0-40); Blood Urea Nitrogen 49 mg/dL (8-23); C Reactive Protein 159.1 mg/L (0.0-4.9); Calcium 8.1 mg/dL (8.5-10.5); Carbon Dioxide 14 mmol/L (22-29); Chloride 96 mmol/L (98-107); Globulin 3.4 g/dL (1.3-4.6); Glucose 107 mg/dL (65-115); Osmolality Calculated 283 mOsm/kg (285-295); Sodium 130 mmol/L (136-145); Total Bilirubin 0.7 mg/dL (0.15-1.2); Total Protein 5.5 g/dL (6.6-8.7)
[2025-01-09 01:15] LABS: Anion Gap 25.4 (5-19); Potassium 5.4 mmol/L (3.5-5.1)
[2025-01-09 01:25] LABS: Ammonia 101 umol/L (16-60)
[2025-01-09] MEDS: lidocaine 2% Urojet 20 mL TOPICAL (01:28)
[2025-01-09] MEDS: sodium chloride 0.9% 1,000 ML 999 ML IV ×2 (01:28→11:07)
[2025-01-09] MEDS: meropenem 500 mg SDV IVP (01:44)
--- NOTE | 2025-01-09 01:44 | ECG_ITS ---
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1960 Requested By: Janell George Order Number: [id number] Carlton MD: JEAN CALZADA Measurements Intervals [place] Rate: 104 P: 66 TN: 142 QRS: 65 QRSD: 82 T: 78 QT: 339 QTc: 447 Interpretive Statements SINUS TACHYCARDIA WITH OCCASIONAL VENTRICULAR PREMATURE COMPLEXES LOW QRS VOLTAGE [QRS DEFLECTION < 0.5/1.0 mV IN LIMB/CHEST LEADS] Compared to ECG 01/08/2025 23:49:02 Ventricular premature complex(es) now present ST (T wave) deviation no longer present Electronically Signed On 01-12-2025 21:55:13 CDT by JEAN CALZADA [id number]
[2025-01-09] MEDS: linezolid premix 600 MG/300 ML PREMIX 300 MG IV (01:47)
[2025-01-09 02:10] LABS: Reflex Lactate Order REFLEX LACTIC ORDERD
[2025-01-09 02:15] LABS: Influenza A NEGATIVE (Negative); Influenza B NEGATIVE (Negative); Respiratory Syncytial Virus Ce NEGATIVE (Negative); SARS-CoV-2 PCR NEGATIVE (Negative)
[2025-01-09 02:23] LABS: Troponin 5 2HR 28.16 ng/L (0-15)
[2025-01-09 02:25] LABS: Troponin 5 2HR Delta -0.84 ABS# (0-10)
[2025-01-09 02:35] LABS: Lactic Acid level (Lactate) 7.3 mmol/L (0.5-2.2)
--- NOTE | 2025-01-09 03:09 | PM.HP ---
Providers/Chief Complaint Admitting Physician: Sandra Campuzano Chief Complaint: abdomen pain, sob History of Present Illness Yannick Miles is a 64 year old male w/ alcohol & tobacco use d/o, COPD, CHF, HTN, and a hx of a TBI who presented to the ED in the late night of 01/08/2025, via EMS, from [facility] w/ complaints chest pain that hurt all the way down past the belly button. When asked to point to the area starts from the b/l mid clavicular line and points down, encompassing all the chest wall, his whole abdomen to the suprapubic area. He states that the whole area has been hurting for the past three days but the pain became so unbearable that he had to come in. He endorses chills, productive cough of thick yellow sputum. He denies dizziness, light headedness, syncope, palpitations, nausea, vomiting, melena, hematochezia. Review of the face sheet that was used to bring the patient to the hospital indicates that the patient was sent to the ED, from the custodial, for pain, increased edema and hypotension. Per ED physician, when he came, he had a de la garza catheter that has been in place for >1month, and it was changed. After it was changed, In the ED, the patient was afebrile, but tachycardic to 117, and hypotensive to 71/53 mmHg in the ED. His labs showed a leukocytosis of 25, INR 1.99, sodium of 130, Cr of 2.6 (Baseline Cr of 0.7 in 10/2024). His EKG showed sinus tachycardia with no ST changes and a QTc of 447. His CXR showed no acute findings. His CT chest/abd/pelvis wo contrast showed tiny b/l tree in bud nodules suspicious for multifocal atypical infection, as well as a 4 mm RLL lung nodule requiring a follow-up CT in [address] C/A/P also showed showed cirrhosis with large volume ascites, cholelithiasis, and tiny b/l nonobstructing renal stones. Blood cultures were ordered. He was given 1L NS x 3L total, Meropenem 500mg x 1, Linezolid 600mg IV x 1, and Solumedrol 125mg IVP x 1. Review of Systems Narrative: Constitutional: (-) fever(s), (+) chills, (-) body aches, (+)poor appetite, (-) change in weight, (+) fatigue, (+) malaise, (-) night sweats, (-) diaphoresis Eyes: (-) change in vision, (-) blurry vision, (-) diplopia, (-) floaters, ENT: (-) ear pain, (-) ear discharge, (-) aural fullness, (-) tinnitus, (-)nasal discharge, (-)nasal congestion, (-) post nasal drip, (-)dysphagia, (-)odynophagia, (-)hoarseness, Card: (+) Chest pain, (-) palpitations, (+) pedal edema, (-) orthopnea, (-) lightheadedness, (-) syncope, (-) pre-syncope, Resp: (-)dyspnea, (-)dyspnea on exertion, (+) productive cough (yellow), (-) wheezing, (-) hemoptysis GI: (+) abdominal pain, (-) nausea, (-) vomiting, (-) hematemesis, (+) diarrhea, (-) constipation, (-) hematochezia, (-) melena : + chronic de la garza catheter placed over a month ago. No hematuria. MSK: (-) myalgias, (-) arthralgias Skin/Breast: (-) rash, (-) sores, (-) new lesions, (-) breast tenderness, (-) breast pain, or (-) nipple discharge Neuro: (-) headaches, (-) dizziness, (-) generalized weakness, (-) weakness in the extremities, (-) frequent falls, (-) Slurred speech present, (-) seizure-like activity Psych: (-) anxiety, (-) depression, (-)paranoia, (-) visual hallucinations, (-) auditory hallucinations, (-)tactile hallucinations, (-) suicidal ideation, (-) homicidal ideation Endo: (-) polyuria, (-) polydipsia, (-) polyphagia, (-)cold intolerance, (-) heat intolerance Heme/Lymph: (-) easy bruising, (-) easy bleeding, (-) petechiae, (-) purpura, (-) enlarged lymph nodes, (-) tender lymph nodes Allergy/Immunlogy: (-) food intolerance, (-) hives/urticaria, (-) itchy/watery eyes, (-) tongue/throat swelling, (-) facial swelling, Medications/Allergies Home Medications ?Medication ?Instructions ?Recorded ?Confirmed ?Last Taken ?Type acetaminophen 500 mg capsule 500 mg PO Q6H PRN Pain 01/09/25 01/09/25 Unknown History albuterol sulfate 2.5 mg/0.5 mL 5 mg inhalation QID PRN Shortness 01/09/25 01/09/25 Unknown History solution for nebulization Of Breath aluminum-mag hydroxide-simethicone 30 ml PO Q2H PRN Heartburn 01/09/25 01/09/25 Unknown History 200 mg-200 mg-20 mg/5 mL oral susp bisacodyl 10 mg rectal suppository 10 mg NJ DAILY PRN Constipation 01/09/25 01/09/25 Unknown History famotidine 20 mg tablet 20 mg PO BID 01/09/25 01/09/25 Unknown History folic acid 1 mg tablet 1 mg PO DAILY 01/09/25 01/09/25 Unknown History furosemide 20 mg tablet 20 mg PO DAILY 01/09/25 01/09/25 Unknown History magnesium hydroxide 400 mg/5 mL 30 ml PO DAILY PRN Constipation 01/09/25 01/09/25 Unknown History oral suspension (Milk of Magnesia) multivitamin 1 tab PO DAILY 01/09/25 01/09/25 Unknown History ondansetron 4 mg disintegrating 4 mg PO Q6H PRN Nausea And Vomiting 01/09/25 01/09/25 Unknown History tablet polyethylene glycol 3350 17 17 g PO DAILY 01/09/25 01/09/25 Unknown History gram/dose oral powder (Miralax) vitamin B complex 1 tab PO DAILY 01/09/25 01/09/25 Unknown History Allergies Allergy/AdvReac Type Severity Reaction Status Date / Time No Known Allergies Allergy Verified 01/08/25 23:52 PFSH Acute PFSH: Surgical History (Updated 01/09/25 @ 07:04 by Sandra Campuzano MD) History of surgery on lower extremity left leg. Approximately in 2019 or 2020 Family History (Updated 01/09/25 @ 07:04 by Sandra Campuzano MD) Mother Cancer Social History (Updated 01/09/25 @ 07:03 by Sandra Campuzano MD) Smoking and tobacco/nicotine status: current every day tobacco/nicotine user cigarettes Packs smoked per day: 1 [ Other cigarette details: smoked since age 10. ] Alcohol intake: former Year of sobriety/quit date alcohol: 2024 Former alcohol use details: Heavy alcohol use. Last use was in 10/2024. Substance/Drug Use: never Vitals/I&O/Wt Last Vital Signs Temp 97.4 F L 01/08/25 23:42 Pulse 102 H 01/09/25 02:30 Resp 16 01/08/25 23:52 BP 90/60 01/09/25 02:30 Pulse Ox 90 01/09/25 02:30 O2 Del Method Room Air 01/08/25 23:42 01/08/25 01/08/25 01/09/25 14:59 22:59 06:59 Intake Total 2300 / 2300 Balance 2300 / 2300 Physical Exam Narrative: Constitutional: GENERAL APPEARANCE: cooperative, uncomfortable and appears older than stated age; not combative, not disheveled, very ill appearing and frail appearing HENT: HEAD & SCALP: normocephalic and atraumatic; NOSE: external nose not normal EXTERNAL EAR: no external ears normal MOUTH: Normal oral and palatal mucosa present THROAT: posterior oropharynx normal Eye: PERRL, EOMI, normal conjunctiva b/l Neck: normal visual inspection, trachea midline, No anterior neck swelling, No tracheal deviation, no submandibular swelling, Thyroid normal, cervical ROM normal Lymph: no cervical, supraclavicular LAD Resp: no use of accessory muscles, minimal to abscent breath sounds in the L lower lung rojas. crackles in the R. lower lung rojas. Coarse expiratory breath sounds b/l. Cardio: RRR, no m/r/g, or clicks. 2+ radial and DP pulses. GI: normoactive bowel sounds, non-tender, non-distended, no guarding, no rigidity, no rebound tenderness, no hepatosplenomegaly. : (-) De La Garza in place w/ zero UOP, (-) CVA tenderness Back/Pelvis: Deferred Extremity: No clubbing, No cyanosis and 2+ b/l pitting edema Neuro: AO to person, place and time. CN normal except as noted. Normal motor muscle tone present throughout. Psych: APPEARANCE: frail ATTITUDE: Yes calm and Yes engaged ACTIVITY/MOTOR BEHAVIOR: Yes appropriate eye contact SPEECH: Yes normal speech MOOD & AFFECT: Yes euthymic mood THOUGHT PROCESS: ---- THOUGHT CONTENT: Yes ---- ATTENTION/CONCENTRATION: Yes attention grossly intact MEMORY/COGNITION: ---- Data 01/09/25 05:10 01/09/25 05:10 Micro: Microbiology 01/09/25 01:48 Blood Culture - Preliminary Blood SPECIMEN COLLECTED 01/09/25 00:09 Blood Culture - Preliminary Blood SPECIMEN COLLECTED A&P Assessment and plan (1) Septic shock: (2) Spontaneous bacterial peritonitis: (3) Ascites: (4) Decompensated cirrhosis: (5) Chronic indwelling De La Garza catheter: Plan Yannick Miles is a 64 year old male w/ alcohol & tobacco use d/o, Decompensated Cirrhosis due to Alcohol, COPD, CHF, HTN, and a hx of a TBI who presented to the ED in the late night of 01/08/2025, via EMS, from [facility] w/ complaints chest pain that hurt all the way down past the belly button. Review of the face sheet that was used to bring the patient to the hospital indicates that the patient was sent to the ED, from the custodial, for pain, increased edema and hypotension. #Septic shock- due multiple etiologies - Spontaneous bacterial peritonitis vs Multifocal atypical infection - s/p 3L NS in the ED w/ improvement in BP. Will order Norepinephrine in anticipation further hypotension. Albumin x 1 also ordered. - Keep MAP>65. #Spontaneous bacterial peritonitis - S/p Merem & Linezolid in the ED. Continue Vanc/Zosyn - F/u abdominal US and large-volume paracentesis labs ordered. #Multifocal atypical bacterial pneuomnia - F/Continue Vanc/Zosy, but add azithromycin #Incidental Pulmonary nodule - to be followed up #Acute COPD Exacerbation - Duonebs started. Held continue Solu-Medrol until paracentesis has been done. #Lactic acidosis- Still elevated at 4.3 despite 3L IVF in the ED. F/u repeat Lactate #Acute Renal Failure: Consider Nephrology consult if no UOP by this afternoon #Chronic indwelling de la garza #Hyperkalemia: Continue to monitor for now. #High anion-gap metabolic acidosis: 2amps of bicarb x 1 ordered. #Decompensated Cirrhosis due to Alcohol use d/o #Alcohol use d/o: abstinent for 4 months per patient. Continue folic acid and thiamine. #Hyperammonemia: Trend #CHF - It is unclear that he has CHF. His volume overload may be due to his liver diagnosis. I saw this diagnosis from his custodial sheet. #Hx of a TBI - Unclear hx. Again, unclear history, I saw this in his custodial diagnosis sheet. DVT ppx: Lovenox ordered to begin tonight. GI ppx: PPI. CODE STATUS: Did not discuss this with the patient. PDMP PDMP Reviewed: Not Reviewed Attestations Medical Necessity Statement*: The patient needs to be hospitalized for greater than 2 midnights for septic shock secondary to multiple etiologies including spontaneous bacterial peritonitis, pneumonia, acute COPD exacerbation, acute renal failure, and acute decompensated cirrhosis due to alcohol use disorder. Critical Care Time: The high probability of a clinically significant, sudden or life threatening deterioration of the patient's [pulmonary, renal, hepatobiliary, gastrointestinal] system(s) required my full and direct attention, intervention and personal management. The critical care time is as shown. This time is in addition to time spent performing any reported procedures but includes the following: [x] Data and vital sign review and interpretation [x] Patient assessment, examination and intervention [x] Documentation [x] Medication orders and management and images of this critical care acute patient, formulating and coordinating plan of care, as well as actively managing the patient at bedside. Critical Care Time (min): 70 Coding Level of Care Code Acute Code for Chg Fwd Diagnoses Septic shock A41.9; R65.21 Spontaneous bacterial peritonitis K65.2 Ascites R18.8 Decompensated cirrhosis K72.90; K74.60 Chronic indwelling De La Garza catheter Z97.8
[2025-01-09 05:20] LABS: Basophils # 0.2 10^3/uL (0.0-0.1); Basophils % 0.5 %; Eosinophils % 0.1 %; Hematocrit 33.6 % (37-53); Lymphocytes # 1.8 10^3/uL (0.8-4.8); Lymphocytes % 5.9 %; Mean Corpuscular Hemoglobin 30.2 pg (27-33); Mean Corpuscular Volume 91.3 fl (82-101); Mean Platelet Volume 10.7 fL (7.4-10.4); Monocytes # 0.8 10^3/uL (0.2-0.9); Monocytes % 2.6 %; Neutrophils # 26.79 10^3/uL (1.8-7.7); Neutrophils % 89.8 %; Nucleated Red Blood Cells % 0 %; Platelet Count 398 10^3/cmm (157-399); Red Blood Count 3.68 10^6/uL (3.85-5.65); Red Cell Distribution Width 15.4 % (12.1-15.1); White Blood Count 29.86 10^3/uL (3.29-11.43)
[2025-01-09 05:40] LABS: Alanine Aminotransferase 19 U/L (0-41); Albumin Level 1.8 g/dL (3.5-5.2); Alkaline Phosphatase 171 U/L (40-130); Anion Gap 19.6 (5-19); Aspartate Amino Transferase 28 U/L (0-40); Blood Urea Nitrogen 49 mg/dL (8-23); Calcium 7.8 mg/dL (8.5-10.5); Carbon Dioxide 16 mmol/L (22-29); Chloride 98 mmol/L (98-107); Globulin 3.5 g/dL (1.3-4.6); Glomerular Filtration Rate 28.8 mL/min (90-130); Glucose 139 mg/dL (65-115); Magnesium 1.7 mg/dL (1.7-2.3); Osmolality Calculated 281 mOsm/kg (285-295); Phosphorus 5.2 mg/dL (2.5-4.5); Potassium 5.6 mmol/L (3.5-5.1); Sodium 128 mmol/L (136-145); Total Bilirubin 0.7 mg/dL (0.15-1.2); Total Protein 5.3 g/dL (6.6-8.7)
--- NOTE | 2025-01-09 05:44 | ECG_ITS ---
[facility] Test Date: 2025-01-09 Pat Name: Yannick Miles Department: Room: [facility] Gender: Male [employer] Developer: : 1960 Requested By: Janell George Order Number: [id number] Carlton MD: JEAN CALZADA Measurements Intervals [place] Rate: 104 P: 60 NE: 123 QRS: 68 QRSD: 87 T: 77 QT: 333 QTc: 440 Interpretive Statements SINUS TACHYCARDIA LOW QRS VOLTAGE [QRS DEFLECTION < 0.5/1.0 mV IN LIMB/CHEST LEADS] Compared to ECG 01/08/2025 23:49:02 ST (T wave) deviation no longer present Electronically Signed On 01-12-2025 21:55:11 CDT by JEAN CALZADA [id number]
[2025-01-09 05:47] LABS: Lactic Sepsis W/Reflex 4.3 mmol/L (0.5-2.2)
[2025-01-09 05:51] LABS: Slide Review Slide Review Perform
[2025-01-09] MEDS: piperacillin-tazobactam 3.375 GM in sodium chloride 0.9% (plus) 50 ML IV ×3 (06:42→20:37)
--- NOTE | 2025-01-09 06:44 | PHA.VACGOAL ---
Vancomycin Goal - Goal Vancomycin Goal:: 15-20 mg/L Vancomycin Indication:: Other (SEPSIS) - Therapy Current therapy:: Pip/Tazo Day of therpy:: Day [1]of [] . Actual body weight (kg): 79.379 kg - Data Labs: WBC 29.86 10^3/uL (3.29-11.43) H 01/09/25 05:10 RBC 3.68 10^6/uL (3.85-5.65) L 01/09/25 05:10 Hgb 11.10 g/dL (11.27-16.99) L 01/09/25 05:10 Hct 33.6 % (37-53) L 01/09/25 05:10 MCV 91.3 fl (82-101) 01/09/25 05:10 MCH 30.2 pg (27-33) 01/09/25 05:10 MCHC 33.0 g/dL (30-55) 01/09/25 05:10 RDW 15.4 % (12.1-15.1) H 01/09/25 05:10 Sodium 128 mmol/L (136-145) L 01/09/25 05:10 Potassium 5.6 mmol/L (3.5-5.1) H 01/09/25 05:10 Chloride 98 mmol/L (98-107) 01/09/25 05:10 Carbon Dioxide 16 mmol/L (22-29) L 01/09/25 05:10 Anion Gap 19.6 (5-19) H 01/09/25 05:10 BUN 49 mg/dL (8-23) H 01/09/25 05:10 Creatinine 2.3 mg/dL (0.7-1.2) H 01/09/25 05:10 GFR Calculation 28.8 mL/min (90-130) L 01/09/25 05:10 Treatment plan:: new consult Regimen:: New start vancomycin for Sepsis. Load dose of 1750 mg ordered ~22 mg/kg. Started on maintenance dose of 1000 mg q24h based on population based pharmacokinetic nomogram.
[2025-01-09 07:05] LABS: Reflex Lactate Order REFLEX LACTIC ORDERD
--- NOTE | 2025-01-09 07:13 | PC.PHAR ---
[facility] patient
[2025-01-09] MEDS: ondansetron 2 mg/ML SDV 2 mL 4 MG IVP (07:34)
[2025-01-09] MEDS: vancomycin 1,750 MG/350 ML PIGGYBACK 175 MG IV (07:35)
--- NOTE | 2025-01-09 07:38 | US_ITS ---
WS: [id number] ULTRASOUND-GUIDED PARACENTESIS CLINICAL INFORMATION: spontaneous bacterial peritonitis COMPARISON: None. Procedure Informed consent: The risks, benefits, and alternatives of the procedure were discussed with the patient's sister. Consent was obtained from the sister prior to procedure Timeout: A timeout was performed to confirm the correct patient, procedure, and site. Preparation: A suitable skin site was identified. The patient was prepped and draped in usual sterile fashion. Lidocaine 1% was used for local anesthesia. Catheter: 4 Maur[place] One-step [employer] catheter. Side: LEFT lower quadrant. Fluid Volume: 2000 ml Color: Clear yellow DISPOSITION: Discarded safely. US/US paracentesis abd w [id number] IMPRESSION: Uncomplicated ultrasound-guided paracentesis. Removal of 2000 cc
[2025-01-09] MEDS: pantoprazole 40 mg SDV IVP ×2 (07:43→20:37)
[2025-01-09] MEDS: AZITHROMYCIN ADD-Vantage 500 MG in 0.9% NaCl ADD-Vantage 250 ML 250 MG IV (07:46)
[2025-01-09 07:59] LABS: Troponin 5 6HR 25.03 ng/L (0-15)
[2025-01-09 08:00] LABS: Troponin 5 6HR Delta -3.97 ng/L (0-12)
[2025-01-09] MEDS: norepinephrine 4 MG/250 ML BAG 7.5 MG IV (08:21)
[2025-01-09] MEDS: sodium bicarbonate 8.4% 1 mEq/mL 50mL Syr 100 MEQ IVP (08:22)
[2025-01-09] MEDS: albumin 25 G/100 ML BAG 60 G IV ×3 (08:23→15:31)
[2025-01-09 08:52] LABS: Lactic Acid level (Lactate) 4.1 mmol/L (0.5-2.2)
--- NOTE | 2025-01-09 09:05 | USCV_ITS ---
Yannick Miles Age: 64 Gender: M : 1960 Exam Date: 01/09/2025 11:17 Ordering Phys: Loyd Turk MD Technologist: Exam Location: [facility] [place] Indication: ? pe ? chf BP: / HR: Rhythm: Sinus Technical Quality: MEASUREMENTS (Male / Female) Normal Values FINDINGS Left Ventricle Right Ventricle Right Atrium Left Atrium Mitral Valve Aortic Valve Tricuspid Valve Pulmonic Valve Pericardium Aorta IVC CONCLUSIONS Images are not interpretable or bilable Chula Jose MD (Electronically Signed) Final Date: 09 January 2025 13:54 S
--- NOTE | 2025-01-09 09:06 | USCV_ITS ---
Yannick Miles Age: 64 Gender: M : 1960 Exam Date: 01/09/2025 15:30 Ordering Phys: Loyd Turk MD Technologist: MARÍA [place]am [place] [facility] [place]ication: dvt HISTORY: DVT. PROCEDURES: The venous duplex Doppler examination of both lower extremities was performed in the standard fashion. FINDINGS: Normal 2-D Doppler and augmentation and compressibility throughout the lower extremity venous structures. Additional imaging through the proximal calf veins also reveals no thrombus. Limited evaluation of the greater saphenous vein is patent with no thrombus. CONCLUSIONS No DVT bilateral lower extremities. Dr. Marimar Osborn DO (Electronically Signed) Final Date: 09 January 2025 15:53 S
[2025-01-09 09:53] LABS: Iron 11 ug/dL (59-158); Percent Saturation 35.4 % (20-50); Thyroid Stimulating Hormone 2.58 uIU/mL (0.27-4.20); Total Iron Binding Capacity 31 mcg/dl; Unsaturated Iron Binding 20 ug/dL (112-347); Vitamin B12 1900 pg/mL (232-1245)
[2025-01-09] MEDS: ipratropium-albuterol 3 mL Neb INHALATION ×4 (09:54→23:28)
[2025-01-09] MEDS: sodium chloride 0.9% 1,000 ML 75 ML IV (09:59)
[2025-01-09 10:19] LABS: Estmated Average Glucose 80; Hemoglobin A1C 4.4 % (4.0-6.0)
[2025-01-09 10:20] LABS: Hematocrit 29.3 % (37-53); Lymphocytes # 2.2 10^3/uL (0.8-4.8); Mean Corpuscular HGB Conc 33.1 g/dL (30-55); Mean Corpuscular Hemoglobin 30.9 pg (27-33); Mean Corpuscular Volume 93.3 fl (82-101); Mean Platelet Volume 10.7 fL (7.4-10.4); Monocytes # 1.2 10^3/uL (0.2-0.9); Monocytes % 2.9 %; Neutrophils # 38.53 10^3/uL (1.8-7.7); Neutrophils % 90.3 %; Nucleated Red Blood Cells % 0 %; Platelet Count 322 10^3/cmm (157-399); Red Blood Count 3.14 10^6/uL (3.85-5.65); Red Cell Distribution Width 15.5 % (12.1-15.1)
[2025-01-09] MEDS: thiamine 100 mg Tablet PO (10:38)
[2025-01-09] MEDS: docusate sodium 100 mg Capsule 200 MG PO (10:39)
[2025-01-09] MEDS: folic acid 1 mg Tablet PO (10:39)
[2025-01-09] MEDS: lactulose oral liq 20 gm/30 mL UDC PO ×3 (10:39→20:37)
[2025-01-09 11:02] LABS: Glucose Point of Care 165 mg/dL (70-110)
[2025-01-09 11:17] LABS: Slide Review Slide Review Perform; White Blood Count 42.69 10^3/uL (3.29-11.43)
[2025-01-09 15:17] LABS: Protein Urine Trace (Negative); Specific Gravity, Urine 1.015 (1.005-1.030); Urine Appearance Cloudy (CLEAR); Urine Color Yellow (Yellow); pH Urine 5 (5-7)
[2025-01-09 15:18] LABS: Add Urine Culture? Yes; Bacteria Urine 2+ /hpf; Bilirubin Urine Neg (Negative); Blood Urine 3+ (Negative); Glucose Urine UA Norm (Normal); Ketones Urine Negative (Negative); Leukocyte Esterase Urine 2+ (Negative); Nitrate Urine Negative (Negative); RBC Urine >100 /hpf (0-2); Squamous Epithelial Cell Urine 0-4 /hpf (0-5); UA Manual Slide Review YES; UA Slide Review UA Slide Review Perf; Urobilinogen Urine Norm (Negative); WBC Urine 55-80 /hpf (0-5)
[2025-01-09 16:15] LABS: Color, Body Fluid YELLOW
[2025-01-09 16:16] LABS: Apprearance, Body Fluid TURBID; Cyto Order Verification No Order; PATH Referral YES
[2025-01-09 16:21] LABS: Body Fluid WBC 10560 /uL
--- NOTE | 2025-01-09 16:25 | P.PN_ITS ---
Subjective 2 Subjective: Admitted overnight. H&P labs appreciated. Examination patient laying comfortably in bed. Denies any nausea, vomiting, headache. Currently on 2 L. Levophed of 2. Mean oral pressure around 65. No urine output in Rivera cathete replaced in ER on admission Vitals/I&O/Wt Last Vital Signs Temp 97.1 F L 01/09/25 16:20 Pulse 97 01/09/25 16:20 Resp 24 H 01/09/25 16:20 BP 87/53 01/09/25 10:40 Pulse Ox 94 01/09/25 16:20 O2 Del Method Nasal Cannula 01/09/25 12:22 O2 Flow Rate 2 01/09/25 12:22 01/09/25 01/09/25 01/09/25 06:59 14:59 22:59 Intake Total 2300 / 2300 388.25 / 388.25 0 / 388.25 Balance 2300 / 2300 388.25 / 388.25 0 / 388.25 Weight last 48 hrs Weight 79.379 kg Physical Exam 2 Narrative: Constitutional: GENERAL APPEARANCE: cooperative, comfortable and appears older than stated age; chronically sick appearing, not combative, not disheveled, very ill appearing and frail appearing HENT: HEAD & SCALP: normocephalic and atraumatic; NOSE: external nose not normal EXTERNAL EAR: no external ears normal MOUTH: Normal oral and palatal mucosa present THROAT: posterior oropharynx normal Eye: PERRL, EOMI, normal conjunctiva b/l Neck: normal visual inspection, trachea midline, No anterior neck swelling, No tracheal deviation, no submandibular swelling, Thyroid normal, cervical ROM normal Lymph: no cervical, supraclavicular LAD Resp: no use of accessory muscles, minimal to abscent breath sounds in the L lower lung rojas. crackles in the R. lower lung rojas. Coarse expiratory breath sounds b/l. Cardio: RRR, no m/r/g, or clicks. 2+ radial and DP pulses. GI: normoactive bowel sounds, generalized tenderness, distended, fluid thrill present, no guarding, no rigidity, no rebound tenderness, no hepatosplenomegaly. : (-) Rivera in place w/ zero UOP, (-) CVA tenderness Extremity: No clubbing, No cyanosis and 2+ b/l pitting edema Neuro: AO to person, place and time. CN normal except as noted. Normal motor muscle tone present throughout. Psych: APPEARANCE: frail ATTITUDE: Yes calm and Yes engaged ACTIVITY/MOTOR BEHAVIOR: Yes appropriate eye contact SPEECH: Yes normal speech MOOD & AFFECT: Yes euthymic mood THOUGHT PROCESS: ---- THOUGHT CONTENT: Yes ---- ATTENTION/CONCENTRATION: Yes attention grossly intact MEMORY/COGNITION: ---- Data 01/09/25 10:13 01/09/25 05:10 Micro: Microbiology 01/09/25 01:48 Blood Culture - Preliminary Blood SPECIMEN COLLECTED 01/09/25 00:09 Blood Culture - Preliminary Blood SPECIMEN COLLECTED A&P Assessment and plan (1) Septic shock: Maintain mean artery pressure 65. Continue with Levophed accordingly. Plan not to wean off Levophed completely overnight given concerns for hepatorenal syndrome. Check cortisol level in AM. Concern for severe hypoalbuminemia. Start on IV albumin every 8 hourly. SIRS: Tachycardic, Febrile, Leukocytosis Source: SBP End organ damage: Septic shock Lactic acid elevated Patient did receive full 30 mL/kg BW. Will check NICOM study again. Continue with NS at 75 cc/h. Check echocardiogram. Monitor blood pressures. Keep mean artery pressure 65 mmHg. Follow-up blood culture, check urinalysis, urine culture, MRSA swab, follow-up abdominal fluid studies including culture once available, bacterial antigen. Empirically continue with IV vancomycin and Zosyn for now. Continue with azithromycin for atypical coverage. De-escalate antibiotics as per culture results. (2) Spontaneous bacterial peritonitis: Clinically high suspicion. Awaiting paracentesis fluid studies. Next antibiotic as above. Patient having significant bursitis. Given hemodynamic instability will request for no more than 2 L of fluid to be evacuated. (3) Hepatorenal syndrome: High concerns given concern for liver cirrhosis. Patient having acute kidney injury with hyperkalemia. Continue with Levophed as above. Will plan not to wean off for now. IV albumin every 8 hours. Monitor renal functions and liver functions daily. (4) Acute kidney injury: Strict input output charting. Medical reconciliation done for nephrotoxic drugs. Monitor renal functions in afternoon. (5) Elevated lactic acid level: Most likely in setting of sepsis and liver cirrhosis. (6) Supratherapeutic INR: Given septic shock will plan for 2 units of FFP. Monitor INR daily. Hemoglobin so far stable. (7) Hypoalbuminemia: (8) Alcoholic cirrhosis of liver: Check hepatitis panel, HIV. Child Patel score: 11. Child class C. (9) Decompensated cirrhosis: (10) Ascites: (11) Chronic indwelling Rivera catheter: Replaced on arrival to the ER on 01/09. Plan Hyperammonemia: Patient AOx3. Continue with lactulose 3 times daily. Full code Renal nondialysis diet?mechanical soft Protonix for PUD prophylaxis Supratherapeutic INR. Hold off on medical prophylaxis. SCDs if lower limb Dopplers negative for DVT. Hold off on SCDs till then. PDMP PDMP Reviewed: Not Reviewed Attestations 2 Medical Necessity Statement*: Requires further hospitalization for management of septic shock in setting of SBP, paracentesis in setting of decompensated liver cirrhosis, supratherapeutic INR, hepatorenal syndrome Critical Care Time: The high probability of a clinically significant, sudden or life threatening deterioration of the patient's [cardiac, renal, pulmonary, GI] system(s) required my full and direct attention, intervention and personal management. The critical care time is as shown. This time is in addition to time spent performing any reported procedures but includes the following: [x] Data and vital sign review and interpretation [x] Patient assessment, examination and intervention [x] Documentation [x] Medication orders and management Critical Care Time (min): 80 Coding Level of Care Code Critical Care >/= 30 minutes Critical care time (in minutes): 80 The high probability of a clinically significant, sudden or life threatening deterioration, as referenced in this documentation, required my full and direct attention, intervention and personal management. The critical care time shown is in addition to time spent performing any reported separately billable procedures and includes the following: [x] Data and vital sign review and interpretation [x ] Patient assessment, examination and intervention [x] Medication orders and management [x] Patient/Family updates as able [x] Care Coordination and Documentation. Other Coding Information Prolonged care (total time indicated above or notated here) (Managing vasopressors, paracentesis, hepatorenal syndrome with renal dysfunction) Diagnoses Septic shock A41.9; R65.21 Spontaneous bacterial peritonitis K65.2 Hepatorenal syndrome K76.7 Acute kidney injury N17.9 Elevated lactic acid level R79.89 Supratherapeutic INR R79.1 Hypoalbuminemia E88.09 Alcoholic cirrhosis of liver K70.30 Decompensated cirrhosis K72.90; K74.60 Ascites R18.8 Chronic indwelling Rivera catheter Z97.8
[2025-01-09 16:29] LABS: Body Fluid Specific Gravity 1.018
[2025-01-09 17:19] LABS: Cholesterol Body Fluid 36 mg/dL (0-200); Fluid Alkaline Phos. 7 IU/L; Total Protein Body Fluid 2.1 g/dL; Triglycerides Body Fluid 26 mg/dL (0-150); Uric Acid Body Fluid 13 mg/dL
[2025-01-09 17:29] LABS: LDH Body Fluid 1533 U/L
[2025-01-09 17:33] LABS: Glucose Point of Care 151 mg/dL (70-110)
[2025-01-09 17:44] LABS: Fluid Laterality ASCITES
[2025-01-09 17:47] LABS: Anion Gap 23.7 (5-19); Blood Urea Nitrogen 50 mg/dL (8-23); Calcium 8.3 mg/dL (8.5-10.5); Carbon Dioxide 18 mmol/L (22-29); Chloride 99 mmol/L (98-107); Creatinine Clr Calc Pharmacy 33.7982; Glomerular Filtration Rate 28.8 mL/min (90-130); Glucose 129 mg/dL (65-115); Lactate Dehydrogenase 261 U/L (135-225); Osmolality Calculated 297 mOsm/kg (285-295); Potassium 4.7 mmol/L (3.5-5.1); Sodium 136 mmol/L (136-145)
[2025-01-09 18:19] LABS: HIV 1 & 2 Antibody Non-Reactive (Non-Reactiv); HIV 1 & 2 Antigen Non-Reactive (Non-Reactiv)
--- NOTE | 2025-01-09 18:37 | PC.NURSE ---
ICU arrival..... late note. Patient arrived in ICU at approximately 0730. Patient is alert but confused. Oriented to self only. BP: 73/53, HR: 101, Temp:97.1, RR: 22. Ultrasound guided IV started upon arrival. Levophed started. ALbumin given
--- NOTE | 2025-01-09 18:40 | PC.NURSE ---
Shift SUmmary: Paracentesis performed. 6liters present per ultrasound, only 2L removed due to hypotension concerns. Fluid was very cloudy. Specimens sent to lab. REceived multiple fluid boluses in ER and another in ICU since cheetah indicated fluid responsive. However maintenance fluids had to be stopped midday due to crackles heard in the lungs. Patient continues to be confused, has pulled out multiple IVs today. See message to nurse order from Dr teresa- does not want levophed shut due to hepatorenal syndrome. Urine output: 50mL
[2025-01-09 20:55] LABS: Hepatitis A Antibody IgM Non-Reactive (Nonreactive); Hepatitis B Core AB, Total Non-Reactive (Nonreactive); Hepatitis B Surface AB 7.3 (11.5-1000); Hepatitis C Virus Antibody Non-Reactive (Nonreactive)
[2025-01-09 21:12] LABS: Glucose Point of Care 159 mg/dL (70-110)
[2025-01-09 21:25] LABS: Hepatitis B Surface Antigen Non-Reactive (Nonreactive)
--- NOTE | 2025-01-09 23:00 | PC.NURSE ---
Pt has requested to go outside and smoke multiple times, becoming very restless and agitated because he cannot smoke. Dr. Campuzano notified. New order for nicotine patch 21 mg and seroquel 50 mg PO.
[2025-01-09] MEDS: nicotine 21 mg Patch 1 PATCH TRANSDERMA (23:17)
[2025-01-09] MEDS: quetiapine 25 mg Tablet 50 MG PO (23:18)
[2025-01-10] VITALS (103 sets, daily range): BP systolic 79–173; BP diastolic 29–98; PULSE 71–112; RESP 7–31; TEMP 36.3–36.9; O2SAT 9–100
[2025-01-10] MEDS: albumin 25 G/100 ML BAG 60 G IV ×4 (01:34→23:41)
[2025-01-10] MEDS: norepinephrine 4 MG/250 ML BAG 15 MG IV (02:01)
[2025-01-10 04:18] LABS: Lymphocytes % 4.1 %; Mean Corpuscular HGB Conc 33.6 g/dL (30-55); Mean Corpuscular Hemoglobin 31.1 pg (27-33); Mean Corpuscular Volume 92.6 fl (82-101); Mean Platelet Volume 10.2 fL (7.4-10.4); Monocytes # 1.5 10^3/uL (0.2-0.9); Monocytes % 3.1 %; Neutrophils # 43.25 10^3/uL (1.8-7.7); Neutrophils % 90.2 %; Nucleated Red Blood Cells % 0 %; Platelet Count 237 10^3/cmm (157-399); Red Cell Distribution Width 15.8 % (12.1-15.1)
[2025-01-10 04:30] LABS: INR 2.26 (0.8-1.2)
[2025-01-10 04:38] LABS: Alanine Aminotransferase 15 U/L (0-41); Alkaline Phosphatase 162 U/L (40-130); Anion Gap 20.3 (5-19); Aspartate Amino Transferase 22 U/L (0-40); Blood Urea Nitrogen 51 mg/dL (8-23); Calcium 8.3 mg/dL (8.5-10.5); Carbon Dioxide 20 mmol/L (22-29); Chloride 101 mmol/L (98-107); Creatinine Clr Calc Pharmacy 27.7628; Globulin 2.6 g/dL (1.3-4.6); Glomerular Filtration Rate 22.9 mL/min (90-130); Glucose 130 mg/dL (65-115); Magnesium 1.8 mg/dL (1.7-2.3); Osmolality Calculated 299 mOsm/kg (285-295); Potassium 4.3 mmol/L (3.5-5.1); Sodium 137 mmol/L (136-145); Total Bilirubin 0.9 mg/dL (0.15-1.2); Total Protein 5.6 g/dL (6.6-8.7)
[2025-01-10 04:39] LABS: Vancomycin Random 22.1 ug/mL (20.0-40.0)
[2025-01-10] MEDS: piperacillin-tazobactam 3.375 GM in sodium chloride 0.9% (plus) 50 ML IV (04:39)
[2025-01-10 04:43] LABS: Cortisol Random 28.01 ug/dL (2.47-19.5)
[2025-01-10 04:44] LABS: Procalcitonin 3.54 ng/mL (0-0.5)
[2025-01-10 04:48] LABS: Slide Review Slide Review Perform
[2025-01-10 04:51] LABS: White Blood Count 47.99 10^3/uL (3.29-11.43)
[2025-01-10 04:59] LABS: Folate Level 18.1 ng/mL (4.5-32.2)
--- NOTE | 2025-01-10 05:11 | PC.NURSE ---
WBC 47.99. Dr Campuzano notified. New order for 500 mg meropenem Q12H, stop zosyn.
[2025-01-10 06:18] LABS: Glucose Point of Care 146 mg/dL (70-110)
[2025-01-10] MEDS: ipratropium-albuterol 3 mL Neb INHALATION ×4 (08:14→19:43)
--- NOTE | 2025-01-10 08:30 | PC.NURSE ---
Pt hallucinating. He is seeing dogs running in the [place]ores.
--- NOTE | 2025-01-10 09:29 | US_ITS ---
WS: [id number] ULTRASOUND-GUIDED PARACENTESIS CLINICAL INFORMATION: severe ascitis Procedure Informed consent: The risks, benefits, and alternatives of the procedure were discussed with the patient. Verbal and written consent was obtained. Timeout: A timeout was performed to confirm the correct patient, procedure, and site. Preparation: A suitable skin site was identified. The patient was prepped and draped in usual sterile fashion. Lidocaine 1% was used for local anesthesia. Catheter: 4 Bulgarian One-step Yueh catheter. Side: RIGHT lower quadrant. Fluid Volume: 2350 ml Color: Clear yellow DISPOSITION: Discarded safely. Complications: None. US/US paracentesis abd w [id number] IMPRESSION: Uncomplicated ultrasound-guided paracentesis. Removal of 2350 cc
[2025-01-10 09:58] LABS: LAB Peripheral Smear Sent for Review
[2025-01-10] MEDS: lactulose oral liq 20 gm/30 mL UDC PO ×3 (10:08→20:43)
[2025-01-10] MEDS: docusate sodium 100 mg Capsule 200 MG PO (10:08)
[2025-01-10] MEDS: folic acid 1 mg Tablet PO (10:08)
[2025-01-10] MEDS: pantoprazole 40 mg SDV IVP ×2 (10:10→20:41)
[2025-01-10] MEDS: meropenem 500 mg SDV IVP ×2 (10:10→20:42)
[2025-01-10] MEDS: AZITHROMYCIN ADD-Vantage 500 MG in 0.9% NaCl ADD-Vantage 250 ML 250 MG IV (10:47)
[2025-01-10] MEDS: sodium chloride 0.9% 1,000 ML 999 ML IV (10:47)
[2025-01-10] MEDS: thiamine 500 MG in sodium chloride 0.9% (100 ml) 100 ML 210 MG IV (10:47)
--- NOTE | 2025-01-10 10:54 | PC.NURSE ---
Addendum entered by Doris Rush RN 01/10/25 11:20: Levophed paused during IV attempts due to tourniquet use/ infiltration prevention. Original Note: AM IV medication delay related to IV access.
--- NOTE | 2025-01-10 11:24 | XR_ITS ---
WS: [id number] XR chest 1V portable [id number] REASON FOR EXAM: Post PICC insertion FINDINGS: A right arm PICC line has been placed. The tip is within the distal SVC in proper position for use. Compared to the previous examination of 01/08/2025. Atelectasis has developed in the right lower lung adjacent to the elevated hemidiaphragm. Chest is otherwise unchanged. XR/XR chest 1V portable [id number] IMPRESSION: Right arm PICC line placement in proper position for use. The position of the P ICC line was confirmed with the radiographic technologist over the phone at 12:10 p.m. 01/10/2025.
--- NOTE | 2025-01-10 12:29 | PICC.NOTE ---
Triple lumen PICC placed to right brachial vein. Referred to vascular access nurse for PICC placement due to poor access and need for vasopressors. Risks and benefits discussed and informed consent obtained from pt sister, Yamile, via phone. Right arm assessed with right brachial vein measuring 3.4 mm, straight, and apparent best choice for placement. Using sterile technique and MST, right brachial vein accessed x 1 stick. Mid-arm circumference measured 10 cm from right AC 23 cm. Trimmed cath 35 cm with 0 cm external length noted. CXR shows tip in distal SVC, in good position for use per radiologist. Line secured with stat-lock. Insertion site covered with Biopatch and TSM. Report given to bedside nurse, YOKASTA George.
[2025-01-10 12:35] LABS: Glucose Point of Care 145 mg/dL (70-110)
--- NOTE | 2025-01-10 15:13 | P.PN_ITS ---
Subjective 2 Subjective: Overnight patient had episodes of confusion. Today morning patient is awake and alert but confused. He is alert to self, being in the hospital. States his breathing is better. Hemodynamically better though is on 4 of Levophed. Urine output improving. Around 2.2 L urine output in last 24 hours. Vitals/I&O/Wt Last Vital Signs Temp 97.8 F 01/10/25 13:30 Pulse 106 H 01/10/25 14:00 Resp 7 L 01/10/25 14:00 BP 141/84 01/10/25 14:00 Pulse Ox 93 01/10/25 14:00 O2 Del Method Nasal Cannula 01/10/25 14:00 O2 Flow Rate 2 01/10/25 14:00 01/10/25 01/10/25 01/10/25 06:59 14:59 22:59 Intake Total 396.375 / 2417.625 1811.25 / 1811.25 Output Total 250 / 2300 Balance 146.375 / 165.102 9635.25 / 1811.25 Weight last 48 hrs Weight 80 kg Weight 80 kg Weight 81.511 kg Weight 79.379 kg Physical Exam 2 Narrative: Constitutional: GENERAL APPEARANCE: cooperative, comfortable and appears older than stated age; chronically sick appearing, not combative, not disheveled, very ill appearing and frail appearing HENT: HEAD & SCALP: normocephalic and atraumatic; NOSE: external nose not normal EXTERNAL EAR: no external ears normal MOUTH: Normal oral and palatal mucosa present THROAT: posterior oropharynx normal Eye: PERRL, EOMI, normal conjunctiva b/l Neck: normal visual inspection, trachea midline, No anterior neck swelling, No tracheal deviation, no submandibular swelling, Thyroid normal, cervical ROM normal Lymph: no cervical, supraclavicular LAD Resp: no use of accessory muscles, minimal to abscent breath sounds in the L lower lung rojas. crackles in the R. lower lung rojas. Coarse expiratory breath sounds b/l. Cardio: RRR, no m/r/g, or clicks. 2+ radial and DP pulses. GI: normoactive bowel sounds, generalized tenderness, distended, fluid thrill present, no guarding, no rigidity, no rebound tenderness, no hepatosplenomegaly. : (-) Rivera in place w/ zero UOP, (-) CVA tenderness Extremity: No clubbing, No cyanosis and 2+ b/l pitting edema Neuro: AO to person, place and time. CN normal except as noted. Normal motor muscle tone present throughout. Psych: APPEARANCE: frail ATTITUDE: Yes calm and Yes engaged ACTIVITY/MOTOR BEHAVIOR: Yes appropriate eye contact SPEECH: Yes normal speech MOOD & AFFECT: Yes euthymic mood THOUGHT PROCESS: ---- THOUGHT CONTENT: Yes ---- ATTENTION/CONCENTRATION: Yes attention grossly intact MEMORY/COGNITION: ---- Urinary Catheter Management: Rivera: Cath Placed During This Visit: no Reason for Continuing Indwelling Catheter: Accurate Measurement of Urinary Output in Critically Ill Patients Data 01/10/25 03:32 01/10/25 03:32 Micro: Microbiology 01/10/25 10:27 Blood Culture - Preliminary Blood SPECIMEN COLLECTED 01/10/25 10:21 Blood Culture - Preliminary Blood SPECIMEN COLLECTED 01/09/25 15:30 Gram Stain - Final Peritoneal Fluid Body Fluid Culture - Preliminary 01/09/25 14:30 Bacterial Antigens - Final Urine Kidney 01/09/25 01:48 Blood Culture - Preliminary Blood NEGATIVE TO DATE 01/09/25 00:09 Blood Culture - Preliminary Blood NEGATIVE TO DATE A&P Assessment and plan (1) Septic shock: Maintain mean artery pressure 65. Continue with Levophed accordingly. Plan not to wean off Levophed completely overnight given concerns for hepatorenal syndrome. Check cortisol level in AM. Concern for severe hypoalbuminemia. Start on IV albumin every 8 hourly. SIRS: Tachycardic, Febrile, Leukocytosis Source: SBP End organ damage: Septic shock Lactic acid elevated Patient did receive full 30 mL/kg BW. NICOM study showed patient to be fluid responsive. Continue with NS at 75 cc/h. If blood pressures remain soft will plan for 1 more liter of IV fluid bolus. Echocardiogram results appreciated. No good window seen on echocardiogram. Delete that Monitor blood pressures. Keep mean artery pressure 65 mmHg. Wean Levophed accordingly. Follow-up blood culture, appreciate urinalysis, urine culture, MRSA swab, bacterial antigen. Appreciate fluid studies to be concerning for significant SBP. Follow-up fluid cultures. Empirically continue with IV vancomycin and meropenem for now. Overnight transition from Zosyn to meropenem because of persistent leukocytosis. Continue with azithromycin for atypical coverage. De-escalate antibiotics as per culture results. Leukocytosis: Could be in setting of sepsis versus leukemoid reaction. Antibiotic as above. Check peripheral smear. (2) Spontaneous bacterial peritonitis: Appreciate fluid studies consistent with SBP. Follow-up cultures. Continue empiric antibiotic as above. Patient underwent 2 L of paracentesis yesterday. Remained hemodynamically stable. Will plan for further paracentesis today to drain completely or hemodynamically stable. Will repeat fluid studies and culture today. (3) Hepatorenal syndrome: High concerns given concern for liver cirrhosis. Patient having acute kidney injury with hyperkalemia. Continue with Levophed as above. Will plan not to wean off for now. IV albumin every 8 hours. Monitor renal functions and liver functions daily. (4) Acute kidney injury: Strict input and output output charting. Medical reconciliation done for nephrotoxic drugs. Hyperkalemia resolved. Does have mild metabolic acidosis. Continue to monitor renal functions. (5) Encephalopathy due to ammonia: Ammonia levels elevated on admission. Patient slightly confused today. Could be in setting of elevated ammonia levels versus sepsis. Continue with lactulose 4 times daily. 1 dose of 500 mg of IV thiamine. Followed by 100 mg IV daily. (6) Elevated lactic acid level: Most likely in setting of sepsis and liver cirrhosis. (7) Supratherapeutic INR: Given septic shock will plan for 2 units of FFP. Monitor INR daily. Hemoglobin so far stable. (8) Hypoalbuminemia: (9) Alcoholic cirrhosis of liver: Check hepatitis panel, HIV. Child Patel score: 11. Child class C. (10) Decompensated cirrhosis: (11) Ascites: (12) Chronic indwelling Rivera catheter: Replaced on arrival to the ER on 01/09. Plan Plan for PICC line placement today due to poor IV access. Full code Renal nondialysis diet?mechanical soft Protonix for PUD prophylaxis Supratherapeutic INR. Hold off on medical prophylaxis. scd. PDMP PDMP Reviewed: Not Reviewed Attestations 2 Medical Necessity Statement*: Requires further hospitalization for management of septic shock in setting of SBP in a patient with history of significant liver cirrhosis, NIURKA with concerns for hepatorenal syndrome, supratherapeutic INR as patient requires further paracentesis Critical Care Time: The high probability of a clinically significant, sudden or life threatening deterioration of the patient's [Renal, GI, cardiac, ID] system(s) required my full and direct attention, intervention and personal management. The critical care time is as shown. This time is in addition to time spent performing any reported procedures but includes the following: [x] Data and vital sign review and interpretation [x] Patient assessment, examination and intervention [x] Documentation [x] Medication orders and management Critical Care Time (min): 70 Coding Level of Care Code Critical Care >/= 30 minutes Critical care time (in minutes): 70 The high probability of a clinically significant, sudden or life threatening deterioration, as referenced in this documentation, required my full and direct attention, intervention and personal management. The critical care time shown is in addition to time spent performing any reported separately billable procedures and includes the following: [x] Data and vital sign review and interpretation [x ] Patient assessment, examination and intervention [x] Medication orders and management [x] Patient/Family updates as able [x] Care Coordination and Documentation. Other Coding Information This patient has a high probability of clinically significant, sudden or life threatening deterioration of the patient's (neurological/pulmonary/cardiac/renal/ID/endocrine) systems required my full, direct attention, the highest level of physician preparedness for urgent intervention and personal management. I managed/supervised life or organ supporting interventions that required frequent physician assessment. I devoted my full attention in the ICU to the direct care of this patient for the period of time indicated above. Time I spent with family or surrogate(s) is included only if the patient was incapable of providing necessary information or participating in decision making. This time includes the following services provided: Telemetry review Hemodynamic interpretation, assessment and management Review and interpretation of CXR Review and interpretation of lab values Review and interpretation of microbiologic data and culture results Review of medications and administration Review and interpretation of Nutrition requirements and management Discussion of management with other consultants and services Clinical update to family members Diagnoses Septic shock A41.9; R65.21 Spontaneous bacterial peritonitis K65.2 Hepatorenal syndrome K76.7 Acute kidney injury N17.9 Encephalopathy due to ammonia T59.891A; G92.8 Elevated lactic acid level R79.89 Supratherapeutic INR R79.1 Hypoalbuminemia E88.09 Alcoholic cirrhosis of liver K70.30 Decompensated cirrhosis K72.90; K74.60 Ascites R18.8 Chronic indwelling Rivera catheter Z97.8
--- NOTE | 2025-01-10 15:45 | PC.NURSE ---
Paracentisis completed. Radiologist at bedside. 2450ml of cloudy lemon yellow drainage noted. Gauze and bioclusive dressing applied. Pt's abdomen softer at this time. VSS. Pt tolerated very well. Samples sent to lab as ordered.
[2025-01-10 16:16] LABS: Apprearance, Body Fluid TURBID; Color, Body Fluid YELLOW
[2025-01-10 16:17] LABS: PATH Referral YES
[2025-01-10 16:20] LABS: Cyto Order Verification No Order
[2025-01-10 16:41] LABS: Body Fluid Polynuclear #Cells 11.663; Body Fluid WBC 12812 /uL; Monocytes # Body Fluid 1.149
[2025-01-10 17:26] LABS: MRSA PCR OZH (swab) NOT DETECTED (Negative)
--- NOTE | 2025-01-10 18:17 | PC.NURSE ---
Addendum entered by Doris Rush RN 01/14/25 15:34: His yelling includes frequent profanity. Original Note: Shift summary: Pt continues to rest in bed throughout shift. He is either resting with eyes closed and even unlabored breaths OR yelling out. He was hallucinating this am about dogs being in the flores. Sinus rhythm noted on monitor. VSS. He is afebrile. Paracentisis done today, 2450 ml of cloudy yellow drainage. Pt requires repositioning frequently. Levophed gtt remains infusing at 3mcg/min. Pt received thiamin Vi, azithromycin and albumin x 2. He also had a liter bolus this shift. Urine output dismal at 175.
[2025-01-10] MEDS: quetiapine 25 mg Tablet 50 MG PO (20:41)
[2025-01-10] MEDS: sennosides 8.6 mg Tablet 17.2 MG PO (20:42)
[2025-01-10] MEDS: norepinephrine 4 MG/250 ML BAG 11.25 MG IV (20:47)
[2025-01-10] MEDS: ondansetron 2 mg/ML SDV 2 mL 4 MG IVP (23:07)
[2025-01-11] VITALS (67 sets, daily range): BP systolic 81–175; BP diastolic 46–96; PULSE 88–112; RESP 14–46; TEMP 35.9–36.5; O2SAT 69–100
[2025-01-11 01:57] LABS: Glucose Point of Care 128 mg/dL (70-110)
[2025-01-11] MEDS: ipratropium-albuterol 3 mL Neb INHALATION ×3 (03:05→20:12)
[2025-01-11 03:35] LABS: Basophils # 0.2 10^3/uL (0.0-0.1); Basophils % 0.4 %; Eosinophils % 0.1 %; Hematocrit 25.7 % (37-53); Lymphocytes # 2.4 10^3/uL (0.8-4.8); Lymphocytes % 5.7 %; Mean Corpuscular HGB Conc 32.7 g/dL (30-55); Mean Corpuscular Hemoglobin 30.3 pg (27-33); Mean Corpuscular Volume 92.8 fl (82-101); Mean Platelet Volume 10.4 fL (7.4-10.4); Monocytes # 1.1 10^3/uL (0.2-0.9); Monocytes % 2.6 %; Neutrophils # 37.83 10^3/uL (1.8-7.7); Neutrophils % 88.7 %; Nucleated Red Blood Cells % 0.1 %; Platelet Count 179 10^3/cmm (157-399); Red Blood Count 2.77 10^6/uL (3.85-5.65); Red Cell Distribution Width 15.9 % (12.1-15.1)
[2025-01-11 03:48] LABS: INR 2.01 (0.8-1.2)
[2025-01-11 03:56] LABS: Alanine Aminotransferase 11 U/L (0-41); Albumin Level 3.2 g/dL (3.5-5.2); Alkaline Phosphatase 154 U/L (40-130); Anion Gap 16.9 (5-19); Aspartate Amino Transferase 21 U/L (0-40); Blood Urea Nitrogen 48 mg/dL (8-23); Calcium 8.3 mg/dL (8.5-10.5); Carbon Dioxide 20 mmol/L (22-29); Chloride 104 mmol/L (98-107); Creatinine Clr Calc Pharmacy 27.5349; Globulin 1.9 g/dL (1.3-4.6); Glomerular Filtration Rate 22.9 mL/min (90-130); Glucose 119 mg/dL (65-115); Magnesium 1.9 mg/dL (1.7-2.3); Osmolality Calculated 298 mOsm/kg (285-295); Potassium 3.9 mmol/L (3.5-5.1); Sodium 137 mmol/L (136-145); Total Bilirubin 0.7 mg/dL (0.15-1.2); Total Protein 5.1 g/dL (6.6-8.7)
[2025-01-11 03:57] LABS: Vancomycin Random 16.3 ug/mL (20.0-40.0)
[2025-01-11 04:43] LABS: White Blood Count 42.68 10^3/uL (3.29-11.43)
[2025-01-11 06:57] LABS: Glucose Point of Care 121 mg/dL (70-110)
[2025-01-11] MEDS: pantoprazole 40 mg SDV IVP ×2 (07:20→20:23)
[2025-01-11] MEDS: AZITHROMYCIN ADD-Vantage 500 MG in 0.9% NaCl ADD-Vantage 250 ML 250 MG IV (07:20)
[2025-01-11] MEDS: thiamine 100 mg/mL 2mL SDV IVP (09:27)
[2025-01-11] MEDS: albumin 25 G/100 ML BAG 60 G IV ×2 (09:27→17:46)
[2025-01-11] MEDS: meropenem 500 mg SDV IVP ×2 (09:28→20:23)
[2025-01-11] MEDS: water for injection-sterile 10 ML 1000 ML (10:22)
--- NOTE | 2025-01-11 11:02 | PC.NURSE ---
frequent c/o nausea with small emisis of bile colored substance large loose liquid bm noted bath done and linen change done
[2025-01-11 11:53] LABS: Glucose Point of Care 116 mg/dL (70-110)
[2025-01-11] MEDS: fluconazole premix 200 MG/100 ML PREMIX 100 MG IV (12:15)
[2025-01-11] MEDS: FUROsemide 10 mg/mL SDV 10mL 80 MG IVP (12:15)
[2025-01-11] MEDS: lactulose oral liq 20 gm/30 mL UDC PO (14:05)
[2025-01-11] MEDS: rifaximin 200 mg Tablet PO ×2 (14:05→20:29)
[2025-01-11] MEDS: midodrine 5 mg TABLET 10 MG PO ×2 (14:05→20:23)
--- NOTE | 2025-01-11 14:52 | P.PN_ITS ---
Subjective 2 Subjective: No acute events overnight. Patient has remained hemodynamically stable and afebrile. Currently mean arterial pressure of 64. On Levophed of 2. More awake and alert today. Having multiple bowel movements. Did undergo 2.4 L more of paracentesis yesterday. Complaining of abdominal pain and distention. Denies any difficulty in breathing. Vitals/I&O/Wt Last Vital Signs Temp 96.7 F L 01/11/25 07:46 Pulse 97 01/11/25 14:00 Resp 26 H 01/11/25 14:00 BP 95/57 01/11/25 14:00 Pulse Ox 69 L 01/11/25 13:00 O2 Del Method Room Air 01/11/25 11:07 O2 Flow Rate 2 01/11/25 00:00 01/10/25 01/11/25 01/11/25 22:59 06:59 14:59 Intake Total 455.25 / 2266.50 100 / 2366.50 360 / 360 Output Total 2625 / 2625 200 / 2825 400 / 400 Balance -2169.75 / -358.50 -100 / -458.50 -40 / -40 Weight last 48 hrs Weight 80.422 kg Weight 80 kg Weight 80 kg Physical Exam 2 Narrative: Constitutional: GENERAL APPEARANCE: cooperative, comfortable and appears older than stated age; chronically sick appearing, not combative, not disheveled, very ill appearing and frail appearing HENT: HEAD & SCALP: normocephalic and atraumatic; NOSE: external nose not normal EXTERNAL EAR: no external ears normal MOUTH: Normal oral and palatal mucosa present THROAT: posterior oropharynx normal Eye: PERRL, EOMI, normal conjunctiva b/l Neck: normal visual inspection, trachea midline, No anterior neck swelling, No tracheal deviation, no submandibular swelling, Thyroid normal, cervical ROM normal Lymph: no cervical, supraclavicular LAD Resp: no use of accessory muscles, minimal to abscent breath sounds in the L lower lung rojas. crackles in the R. lower lung rojas. Coarse expiratory breath sounds b/l. Cardio: RRR, no m/r/g, or clicks. 2+ radial and DP pulses. GI: normoactive bowel sounds, generalized tenderness, distended, fluid thrill present, no guarding, no rigidity, no rebound tenderness, no hepatosplenomegaly. : (-) Rivera in place w/ zero UOP, (-) CVA tenderness Extremity: No clubbing, No cyanosis and 2+ b/l pitting edema Neuro: AO to person, place and time. CN normal except as noted. Normal motor muscle tone present throughout. Psych: APPEARANCE: frail ATTITUDE: Yes calm and Yes engaged ACTIVITY/MOTOR BEHAVIOR: Yes appropriate eye contact SPEECH: Yes normal speech MOOD & AFFECT: Yes euthymic mood THOUGHT PROCESS: ---- THOUGHT CONTENT: Yes ---- ATTENTION/CONCENTRATION: Yes attention grossly intact MEMORY/COGNITION: ---- Urinary Catheter Management: Rivera: Cath Placed During This Visit: no Reason for Continuing Indwelling Catheter: Accurate Measurement of Urinary Output in Critically Ill Patients Data 01/11/25 03:15 01/11/25 03:15 Micro: Microbiology 01/10/25 15:30 Gram Stain - Final Peritoneal Fluid Body Fluid Culture - Preliminary 01/09/25 15:30 Gram Stain - Final Peritoneal Fluid Body Fluid Culture - Preliminary 01/09/25 14:30 Urine Culture - Final Urine,Clean Catch 01/10/25 10:27 Blood Culture - Preliminary Blood NEGATIVE TO DATE 01/10/25 10:21 Blood Culture - Preliminary Blood NEGATIVE TO DATE 01/09/25 15:30 Mycobacterial Smear - Preliminary Body Fluids - Peritoneal A&P Assessment and plan (1) Septic shock: Maintain mean artery pressure 65. Continue with Levophed accordingly. Plan not to wean off Levophed completely overnight given concerns for hepatorenal syndrome. Check cortisol level in AM. Concern for severe hypoalbuminemia. Continue with IV albumin every 8 hourly. SIRS: Tachycardic, Febrile, Leukocytosis Source: SBP End organ damage: Septic shock Lactic acid elevated Patient did receive full 30 mL/kg BW. NICOM study showed patient to be fluid responsive. Given concerns for renal failure along with severe ascites for now hold off on IV fluids. Echocardiogram results appreciated. No good window seen on echocardiogram. Monitor blood pressures. Keep mean artery pressure 65 mmHg. Wean Levophed accordingly. Add midodrine 10 mg oral 3 times daily. Follow-up blood culture, appreciate urinalysis, urine culture, MRSA swab negative. Appreciate fluid studies to be concerning for significant SBP. Follow-up fluid cultures. Empirically continue with IV vancomycin and meropenem for now. Continue azithromycin for 3-day course. As patient remains critically sick given the MRSA swab was negative for now we will continue with IV vancomycin. Patient remains oliguric. Daily vancomycin random levels. Leukocytosis: Could be in setting of sepsis versus leukemoid reaction. Antibiotic as above. Check peripheral smear. (2) Spontaneous bacterial peritonitis: Appreciate fluid studies consistent with SBP. Follow-up cultures. Continue empiric antibiotic as above. Overall underwent 2 paracentesis on 01/09 and 01/10. Overall 4.4 L of fluid removed. Follow-up fluid cultures. Fluid studies consistent with SBP. (3) Hepatorenal syndrome: High concerns given concern for liver cirrhosis. Patient having acute kidney injury with hyperkalemia. Continue with Levophed as above. Add midodrine 10 mg oral 3 times daily. Wean Levophed accordingly. IV albumin every 8 hours. Monitor renal functions and liver functions daily. (4) Acute kidney injury: Kidney function stable. Slight improvement in BUN. Stable sodium and potassium level. Strict input and output output charting. Medical reconciliation done for nephrotoxic drugs. Associated with oliguria. Albumin level is improving. IV Lasix 80 mg one-time. If remains oliguric will plan to consult nephrology for further recommendations. No electrolyte abnormality. Continue to monitor renal functions. (5) Encephalopathy due to ammonia: Ammonia levels elevated on admission. Patient slightly confused today. Could be in setting of elevated ammonia levels versus sepsis. Continue with lactulose 4 times daily. Continue with IV thiamine 100 mg daily. (6) Elevated lactic acid level: Most likely in setting of sepsis and liver cirrhosis. (7) Supratherapeutic INR: Post 2 units of FFP. Monitor INR daily. Hemoglobin so far stable. (8) Hypoalbuminemia: (9) Alcoholic cirrhosis of liver: Check hepatitis panel, HIV. Child Patel score: 11. Child class C. (10) Decompensated cirrhosis: (11) Ascites: (12) Chronic indwelling Rivera catheter: Replaced on arrival to the ER on 01/09. Plan Guarded prognosis. Full code Patient having recurrent episodes of nausea and vomiting. Switch to full liquid diet. Protonix for PUD prophylaxis Supratherapeutic INR. Hold off on medical prophylaxis. scd. PDMP PDMP Reviewed: Not Reviewed Attestations 2 Medical Necessity Statement*: Requires further hospitalization for management of septic shock, hepatorenal syndrome with renal failure in a patient admitted for SBP with a baseline history of liver cirrhosis Critical Care Time: The high probability of a clinically significant, sudden or life threatening deterioration of the patient's [cardiac, pulmonary, renal, GI] system(s) required my full and direct attention, intervention and personal management. The critical care time is as shown. This time is in addition to time spent performing any reported procedures but includes the following: [x] Data and vital sign review and interpretation [x] Patient assessment, examination and intervention [x] Documentation [x] Medication orders and management Critical Care Time (min): 80 Coding Level of Care Code Critical Care >/= 30 minutes Critical care time (in minutes): 70 The high probability of a clinically significant, sudden or life threatening deterioration, as referenced in this documentation, required my full and direct attention, intervention and personal management. The critical care time shown is in addition to time spent performing any reported separately billable procedures and includes the following: [x] Data and vital sign review and interpretation [x ] Patient assessment, examination and intervention [x] Medication orders and management [x] Patient/Family updates as able [x] Care Coordination and Documentation. Diagnoses Septic shock A41.9; R65.21 Spontaneous bacterial peritonitis K65.2 Hepatorenal syndrome K76.7 Acute kidney injury N17.9 Encephalopathy due to ammonia T59.891A; G92.8 Elevated lactic acid level R79.89 Supratherapeutic INR R79.1 Hypoalbuminemia E88.09 Alcoholic cirrhosis of liver K70.30 Decompensated cirrhosis K72.90; K74.60 Ascites R18.8 Chronic indwelling Rivera catheter Z97.8
[2025-01-11 17:25] LABS: Glucose Point of Care 101 mg/dL (70-110)
[2025-01-11] MEDS: quetiapine 25 mg Tablet 50 MG PO (20:23)
[2025-01-11] MEDS: sennosides 8.6 mg Tablet 17.2 MG PO (20:23)
[2025-01-12] VITALS (53 sets, daily range): BP systolic 76–118; BP diastolic 39–78; PULSE 82–117; RESP 14–29; TEMP 36.3–37.2; O2SAT 85–100
[2025-01-12] MEDS: ipratropium-albuterol 3 mL Neb INHALATION ×5 (00:47→20:28)
[2025-01-12] MEDS: albumin 25 G/100 ML BAG 60 G IV ×3 (01:19→16:44)
[2025-01-12 02:09] LABS: Glucose Point of Care 101 mg/dL (70-110)
[2025-01-12] MEDS: norepinephrine 4 MG/250 ML BAG 11.25 MG IV (03:18)
[2025-01-12 05:26] LABS: Basophils # 0.1 10^3/uL (0.0-0.1); Basophils % 0.3 %; Eosinophils # 0.3 10^3/uL (0.0-0.8); Eosinophils % 0.7 %; Hematocrit 24.9 % (37-53); Lymphocytes # 2.9 10^3/uL (0.8-4.8); Lymphocytes % 7.4 %; Mean Corpuscular HGB Conc 32.5 g/dL (30-55); Mean Corpuscular Hemoglobin 30.3 pg (27-33); Mean Corpuscular Volume 93.3 fl (82-101); Mean Platelet Volume 11.4 fL (7.4-10.4); Monocytes # 1.1 10^3/uL (0.2-0.9); Monocytes % 2.8 %; Neutrophils # 33.25 10^3/uL (1.8-7.7); Neutrophils % 86.5 %; Nucleated Red Blood Cells % 0.1 %; Platelet Count 135 10^3/cmm (157-399); Red Blood Count 2.67 10^6/uL (3.85-5.65); Red Cell Distribution Width 16.2 % (12.1-15.1)
[2025-01-12 05:38] LABS: White Blood Count 38.42 10^3/uL (3.29-11.43)
[2025-01-12 05:47] LABS: Vancomycin Random 14.2 ug/mL (20.0-40.0)
[2025-01-12 05:48] LABS: Alanine Aminotransferase 11 U/L (0-41); Albumin Level 3.5 g/dL (3.5-5.2); Alkaline Phosphatase 163 U/L (40-130); Anion Gap 19.7 (5-19); Aspartate Amino Transferase 31 U/L (0-40); Blood Urea Nitrogen 52 mg/dL (8-23); Calcium 8.3 mg/dL (8.5-10.5); Carbon Dioxide 20 mmol/L (22-29); Chloride 104 mmol/L (98-107); Creatinine Clr Calc Pharmacy 27.5986; Globulin 1.5 g/dL (1.3-4.6); Glomerular Filtration Rate 22.9 mL/min (90-130); Glucose 97 mg/dL (65-115); Magnesium 1.9 mg/dL (1.7-2.3); Osmolality Calculated 304 mOsm/kg (285-295); Potassium 3.7 mmol/L (3.5-5.1); Sodium 140 mmol/L (136-145); Total Bilirubin 0.7 mg/dL (0.15-1.2)
[2025-01-12 06:02] LABS: INR 1.97 (0.8-1.2)
[2025-01-12] MEDS: vancomycin 500 MG in sodium chloride 0.9% (plus) 100 ML 200 MG IV (07:15)
[2025-01-12] MEDS: pantoprazole 40 mg SDV IVP ×2 (07:16→21:27)
[2025-01-12 07:47] LABS: Glucose Point of Care 104 mg/dL (70-110)
[2025-01-12] MEDS: meropenem 500 mg SDV IVP ×2 (09:09→21:27)
[2025-01-12] MEDS: folic acid 1 mg Tablet PO (09:10)
[2025-01-12] MEDS: docusate sodium 100 mg Capsule 200 MG PO (09:10)
[2025-01-12] MEDS: lactulose oral liq 20 gm/30 mL UDC PO (09:10)
[2025-01-12] MEDS: rifaximin 200 mg Tablet PO ×3 (09:11→21:27)
[2025-01-12] MEDS: midodrine 5 mg TABLET 10 MG PO ×3 (09:11→21:27)
[2025-01-12] MEDS: thiamine 100 mg/mL 2mL SDV IVP (09:11)
[2025-01-12] MEDS: water for injection-sterile 10 ML 1000 ML (09:31)
[2025-01-12] MEDS: FUROsemide 10 mg/mL SDV 10mL 80 MG IVP (10:10)
[2025-01-12] MEDS: metOLazone 5 MG Tablet PO (10:10)
[2025-01-12] MEDS: sodium bicarbonate 8.4% 1 mEq/mL 50mL Syr 50 MEQ IVP (10:11)
[2025-01-12 10:12] LABS: ABG PCO2 29.6 mmHg (35-45); ABG PH Result 7.44 (7.35-7.45); Alveolar-Arterial Oxygen Gradi 6.2 mmHg (5-10); Arterial Blood Gas Hematocrit 25.8 % (42-52); Base Excess ABG -3.5 mmol/L (-2.0-2.0); Blood Gas Allen Test Pos; Blood Gas Operator Identificat CAK; Blood Gas Sample Site Brachial, left; Blood Gas Sample Type Arterial; Carboxyhemoglobin 1.2 %THgb (0.4-20.1); HGB O2 Sat 92.5 % (95-100); Ionized Calcium Level - ABG 1.2 mmol/L (1.1-1.4); Methemoglobin 0.6 % (0.4-1.5); Oxygen Device ROOM AIR; Oxygen Saturation ABG 94.2; PO2 ABG 64.3 mmHg (80.0-100.0); PO2 FiO2 Ratio Arterial Blood 306; Potassium Level - ABG 3.7 mmol/L (3.5-5.0); Total Hemoglobin 8.4 g/dL (14-18)
[2025-01-12] MEDS: dextrose 5%-sod chloride 0.9% 1,000 ML 50 ML IV (12:53)
[2025-01-12] MEDS: fluconazole premix 200 MG/100 ML PREMIX 100 MG IV (12:53)
--- NOTE | 2025-01-12 14:26 | P.PN_ITS ---
Subjective 2 Subjective: No acute events overnight. Remains on Levophed at 3. Denies any nausea, vomiting, headache. More awake and alert today. Urine output of around 650 cc in last 24 hours. Vitals/I&O/Wt Last Vital Signs Temp 97.3 F L 01/12/25 08:00 Pulse 109 H 01/12/25 13:30 Resp 23 H 01/12/25 13:30 BP 90/55 01/12/25 13:30 Pulse Ox 90 01/12/25 13:00 O2 Del Method Room Air 01/12/25 11:19 O2 Flow Rate 2 01/11/25 00:00 01/11/25 01/12/25 01/12/25 22:59 06:59 14:59 Intake Total 800 / 1160 114.063 / 1274.063 510 / 510 Output Total 400 / 800 250 / 1050 Balance 400 / 360 -135.937 / 224.063 510 / 510 Weight last 48 hrs Weight 79.515 kg Weight 80.422 kg Physical Exam 2 Narrative: Constitutional: GENERAL APPEARANCE: cooperative, comfortable and appears older than stated age; chronically sick appearing, not combative, not disheveled, very ill appearing and frail appearing HENT: HEAD & SCALP: normocephalic and atraumatic; NOSE: external nose not normal EXTERNAL EAR: no external ears normal MOUTH: Normal oral and palatal mucosa present THROAT: posterior oropharynx normal Eye: PERRL, EOMI, normal conjunctiva b/l Neck: normal visual inspection, trachea midline, No anterior neck swelling, No tracheal deviation, no submandibular swelling, Thyroid normal, cervical ROM normal Lymph: no cervical, supraclavicular LAD Resp: no use of accessory muscles, minimal to abscent breath sounds in the L lower lung rojas. crackles in the R. lower lung rojas. Coarse expiratory breath sounds b/l. Cardio: RRR, no m/r/g, or clicks. 2+ radial and DP pulses. GI: normoactive bowel sounds, generalized tenderness, distended, fluid thrill present, no guarding, no rigidity, no rebound tenderness, no hepatosplenomegaly. : (-) Rivera in place w/ zero UOP, (-) CVA tenderness Extremity: No clubbing, No cyanosis and 2+ b/l pitting edema Neuro: AO to person, place and time. CN normal except as noted. Normal motor muscle tone present throughout. Psych: APPEARANCE: frail ATTITUDE: Yes calm and Yes engaged ACTIVITY/MOTOR BEHAVIOR: Yes appropriate eye contact SPEECH: Yes normal speech MOOD & AFFECT: Yes euthymic mood THOUGHT PROCESS: ---- THOUGHT CONTENT: Yes ---- ATTENTION/CONCENTRATION: Yes attention grossly intact MEMORY/COGNITION: ---- Urinary Catheter Management: Rivera: Cath Placed During This Visit: no Reason for Continuing Indwelling Catheter: Accurate Measurement of Urinary Output in Critically Ill Patients Data 01/12/25 05:16 01/12/25 05:16 Micro: Microbiology 01/09/25 15:30 Gram Stain - Final Peritoneal Fluid Anaerobic Culture - Preliminary Body Fluid Culture - Preliminary 01/10/25 15:30 Gram Stain - Final Peritoneal Fluid Body Fluid Culture - Preliminary 01/09/25 14:30 Urine Culture - Final Urine,Clean Catch 01/10/25 10:27 Blood Culture - Preliminary Blood NEGATIVE TO DATE 01/10/25 10:21 Blood Culture - Preliminary Blood NEGATIVE TO DATE A&P Assessment and plan (1) Septic shock: Maintain mean artery pressure 65. Continue with Levophed accordingly. Plan not to wean off Levophed completely overnight given concerns for hepatorenal syndrome. Check cortisol level in AM. Concern for severe hypoalbuminemia. Continue with IV albumin every 8 hourly. SIRS: Tachycardic, Febrile, Leukocytosis Source: SBP End organ damage: Septic shock Lactic acid elevated Patient did receive full 30 mL/kg BW. NICOM study showed patient to be fluid responsive. Given concerns for renal failure along with severe ascites for now hold off on IV fluids. Echocardiogram results appreciated. No good window seen on echocardiogram. Monitor blood pressures. Keep mean artery pressure 65 mmHg. Wean Levophed accordingly. Add midodrine 10 mg oral 3 times daily. Follow-up blood culture, appreciate urinalysis, urine culture, MRSA swab negative. Appreciate fluid studies to be concerning for significant SBP. Follow-up fluid cultures. Empirically continue with IV vancomycin and meropenem for now. Continue azithromycin for 3-day course. As patient remains critically sick given the MRSA swab was negative for now we will continue with IV vancomycin. Patient remains oliguric. Daily vancomycin random levels. Leukocytosis: Could be in setting of sepsis versus leukemoid reaction. Antibiotic as above. Check peripheral smear. (2) Spontaneous bacterial peritonitis: Appreciate fluid studies consistent with SBP. Follow-up cultures. Continue empiric antibiotic as above. Overall underwent 2 paracentesis on 01/09 and 01/10. Overall 4.4 L of fluid removed. Follow-up fluid cultures. Fluid studies consistent with SBP. (3) Hepatorenal syndrome: High concerns given concern for liver cirrhosis. Patient having acute kidney injury with hyperkalemia. Continue with Levophed as above. Add midodrine 10 mg oral 3 times daily. Wean Levophed accordingly. IV albumin every 8 hours. Monitor renal functions and liver functions daily. (4) Acute kidney injury: Kidney function stable. Slight improvement in BUN. Stable sodium and potassium level. Strict input and output output charting. Medical reconciliation done for nephrotoxic drugs. Associated with oliguria. Albumin level is improving. IV Lasix 80 mg one-time. If remains oliguric will plan to consult nephrology for further recommendations. No electrolyte abnormality. Continue to monitor renal functions. (5) Encephalopathy due to ammonia: Ammonia levels elevated on admission. Patient slightly confused today. Could be in setting of elevated ammonia levels versus sepsis. Continue with lactulose 4 times daily. Continue with IV thiamine 100 mg daily. (6) Elevated lactic acid level: Most likely in setting of sepsis and liver cirrhosis. (7) Supratherapeutic INR: Post 2 units of FFP. Monitor INR daily. Hemoglobin so far stable. (8) Hypoalbuminemia: (9) Alcoholic cirrhosis of liver: Check hepatitis panel, HIV. Child Patel score: 11. Child class C. (10) Decompensated cirrhosis: (11) Ascites: (12) Chronic indwelling Rivera catheter: Replaced on arrival to the ER on 01/09. Plan Guarded prognosis. Full code Patient having recurrent episodes of nausea and vomiting. Switch to full liquid diet. Protonix for PUD prophylaxis Supratherapeutic INR. Hold off on medical prophylaxis. scd. Plan for the day: Patient seemed mildly tachypneic today. ABG checked shows hypoxia and hypercapnia. Saturation maintained over 90%. Wean Levophed keeping mean arterial pressure over 65. Continue with midodrine 10 mg 3 times daily, albumin every 8 hours with concerns for hepatorenal syndrome. If Levophed weaned off we will switch over to octreotide. Follow-up blood culture, peritoneal fluid culture. For now continue with empiric IV meropenem, vancomycin, fluconazole. Dose vancomycin as per daily Vanco random levels. Strict input output charting, daily weights. Creatinine and BUN so far stable. Mild acidosis. Sodium bicarb 150 mg one-time. IV Lasix 80 mg one-time. Metolazone 5 mg one-time. Patient looks intravascularly depleted. Start on D5 NS at 50 cc/h. Abdominal distended again today. Plan for another paracentesis. Encephalopathy improving. Continues to have many bowel movements. Switch lactulose to 20 mg oral daily. Continue with rifaximin 3 times daily. Monitor blood sugars. Out of bed to chair. Seroquel 25 mg nightly. Patient continues to have episodes of nausea and vomiting. Zofran as needed. Continue with full liquid diet. Goals of care discussion: Had detailed goals of care discussion with patient today. Discussed unfortunately he has decompensated liver failure which is causing the significant ascites and abdominal distention which is causing him in distress with his breathing. Discussed unfortunately there is liver risks of significantly decompensated that he will continue to retain more fluid in his belly and is causing distress on his kidneys which is called as hepatorenal syndrome and also shock on his heart with concerns for infection in his abdomen. Discussed going forward the options are of possible liver transplant which unfortunately he will not be a good candidate for given his multiple comorbidities. Other option would be to continue current care with possible need for Pleurx catheter so that he can keep draining his peritoneal fluid every other day for comfort once the concerns for infection is gone versus other option of transitioning to hospice which would mean continuing chronic medication but if and when he gets sick again to keep him comfortable at SNF while nature takes its own course which would mean he would eventually . Patient verbalizes understanding and wants to think further about the same. PDMP PDMP Reviewed: Not Reviewed Attestations 2 Medical Necessity Statement*: Requires further hospitalization for management of septic shock in setting of SBP, hepatorenal syndrome in setting of acute liver failure, acute kidney injury with oliguria, acute metabolic encephalopathy in setting of hyperammonemia Critical Care Time: The high probability of a clinically significant, sudden or life threatening deterioration of the patient's [cardiac, pulmonary, renal, GI] system(s) required my full and direct attention, intervention and personal management. The critical care time is as shown. This time is in addition to time spent performing any reported procedures but includes the following: [x] Data and vital sign review and interpretation [x] Patient assessment, examination and intervention [x] Documentation [x] Medication orders and management Critical Care Time (min): 80 Coding Level of Care Code Critical Care >/= 30 minutes Critical care time (in minutes): 80 The high probability of a clinically significant, sudden or life threatening deterioration, as referenced in this documentation, required my full and direct attention, intervention and personal management. The critical care time shown is in addition to time spent performing any reported separately billable procedures and includes the following: [x] Data and vital sign review and interpretation [x ] Patient assessment, examination and intervention [x] Medication orders and management [x] Patient/Family updates as able [x] Care Coordination and Documentation. Other Coding Information This patient has a high probability of clinically significant, sudden or life threatening deterioration of the patient's (neurological/pulmonary/cardiac/renal/ID/endocrine) systems required my full, direct attention, the highest level of physician preparedness for urgent intervention and personal management. I managed/supervised life or organ supporting interventions that required frequent physician assessment. I devoted my full attention in the ICU to the direct care of this patient for the period of time indicated above. Time I spent with family or surrogate(s) is included only if the patient was incapable of providing necessary information or participating in decision making. This time includes the following services provided: Telemetry review Hemodynamic interpretation, assessment and management Review and interpretation of CXR Review and interpretation of lab values Review and interpretation of microbiologic data and culture results Review of medications and administration Review and interpretation of Nutrition requirements and management Discussion of management with other consultants and services Clinical update to family members Diagnoses Septic shock A41.9; R65.21 Spontaneous bacterial peritonitis K65.2 Hepatorenal syndrome K76.7 Acute kidney injury N17.9 Encephalopathy due to ammonia T59.891A; G92.8 Elevated lactic acid level R79.89 Supratherapeutic INR R79.1 Hypoalbuminemia E88.09 Alcoholic cirrhosis of liver K70.30 Decompensated cirrhosis K72.90; K74.60 Ascites R18.8 Chronic indwelling Rivera catheter Z97.8
[2025-01-12] MEDS: HYDROcodone-acetaminophen 5-325 mg Tablet 1 TAB PO (14:37)
--- NOTE | 2025-01-12 14:51 | PC.NURSE ---
pericare done excoriation on bottom red and irritated loose bm noted ointment applied and up to chair with total assist, freq c/o pain bottom and abdomen ect ,, doctor called and order for pain medication frequent yelling and cursing for no reason
[2025-01-12 14:52] LABS: Glucose Point of Care 98 mg/dL (70-110)
--- NOTE | 2025-01-12 17:05 | PC.NURSE ---
back to bed at this position off bottom and states pain medication has help a lot today
[2025-01-12] MEDS: sennosides 8.6 mg Tablet 17.2 MG PO (21:27)
[2025-01-12] MEDS: quetiapine 25 mg Tablet 50 MG PO (21:27)
[2025-01-12 22:05] LABS: Glucose Point of Care 123 mg/dL (70-110)
[2025-01-13] VITALS (48 sets, daily range): BP systolic 80–113; BP diastolic 45–72; PULSE 92–113; RESP 10–29; TEMP 36.1–36.9; O2SAT 84–100
[2025-01-13] MEDS: norepinephrine 4 MG/250 ML BAG 15 MG IV (00:25)
[2025-01-13] MEDS: ipratropium-albuterol 3 mL Neb INHALATION ×7 (00:32→23:16)
[2025-01-13] MEDS: albumin 25 G/100 ML BAG 60 G IV ×3 (01:54→16:17)
[2025-01-13 02:40] LABS: Glucose Point of Care 133 mg/dL (70-110)
[2025-01-13 05:21] LABS: Basophils # 0.1 10^3/uL (0.0-0.1); Basophils % 0.3 %; Eosinophils # 0.5 10^3/uL (0.0-0.8); Eosinophils % 1.2 %; Hematocrit 24.3 % (37-53); Lymphocytes # 2.7 10^3/uL (0.8-4.8); Lymphocytes % 6.8 %; Mean Corpuscular HGB Conc 32.1 g/dL (30-55); Mean Corpuscular Hemoglobin 30.8 pg (27-33); Mean Platelet Volume 11.3 fL (7.4-10.4); Monocytes # 1.1 10^3/uL (0.2-0.9); Monocytes % 2.7 %; Neutrophils % 86.3 %; Nucleated Red Blood Cells % 0 %; Platelet Count 127 10^3/cmm (157-399); Red Blood Count 2.53 10^6/uL (3.85-5.65); Red Cell Distribution Width 16.4 % (12.1-15.1)
[2025-01-13 05:35] LABS: INR 2.13 (0.8-1.2)
[2025-01-13 05:40] LABS: Vancomycin Random 14.6 ug/mL (20.0-40.0)
[2025-01-13 05:48] LABS: Alanine Aminotransferase 9 U/L (0-41); Albumin Level 3.8 g/dL (3.5-5.2); Alkaline Phosphatase 142 U/L (40-130); Aspartate Amino Transferase 27 U/L (0-40); Blood Urea Nitrogen 48 mg/dL (8-23); Calcium 8.4 mg/dL (8.5-10.5); Carbon Dioxide 22 mmol/L (22-29); Chloride 103 mmol/L (98-107); Creatinine Clr Calc Pharmacy 29.5742; Globulin 1.4 g/dL (1.3-4.6); Glucose 119 mg/dL (65-115); Magnesium 1.9 mg/dL (1.7-2.3); Osmolality Calculated 302 mOsm/kg (285-295); Sodium 139 mmol/L (136-145); Total Bilirubin 0.7 mg/dL (0.15-1.2); Total Protein 5.2 g/dL (6.6-8.7)
[2025-01-13 05:55] LABS: Anion Gap 17.4 (5-19); Potassium 3.4 mmol/L (3.5-5.1)
[2025-01-13 06:22] LABS: White Blood Count 39.85 10^3/uL (3.29-11.43)
--- NOTE | 2025-01-13 06:43 | PC.NURSE ---
New wheeze sound auscultated in middle right lobe following patient O2 dropping to about 80%. Patient currently on oxymask at 6L and maintaining 90-92% O2.
[2025-01-13] MEDS: dextrose 5%-sod chloride 0.9% 1,000 ML 50 ML IV (08:59)
[2025-01-13] MEDS: vancomycin 500 MG in sodium chloride 0.9% (plus) 100 ML 200 MG IV (08:59)
[2025-01-13] MEDS: thiamine 100 mg/mL 2mL SDV IVP (09:15)
[2025-01-13] MEDS: folic acid 1 mg Tablet PO (09:16)
[2025-01-13] MEDS: midodrine 5 mg TABLET 10 MG PO ×3 (09:16→20:17)
[2025-01-13] MEDS: metOLazone 5 MG Tablet PO (09:16)
[2025-01-13] MEDS: lactulose oral liq 20 gm/30 mL UDC PO (09:16)
[2025-01-13] MEDS: docusate sodium 100 mg Capsule 200 MG PO (09:16)
[2025-01-13] MEDS: rifaximin 200 mg Tablet PO ×3 (09:16→20:17)
[2025-01-13] MEDS: pantoprazole 40 mg SDV IVP ×2 (09:29→20:17)
[2025-01-13] MEDS: meropenem 500 mg SDV IVP ×2 (09:29→20:17)
--- NOTE | 2025-01-13 11:02 | US_ITS ---
WS: [id number] ULTRASOUND-GUIDED THERAPEUTIC PARACENTESIS Procedure, risks, and complications have been explained to the patient. Consent is obtained. Utilizing aseptic technique and 1% buffered lidocaine, a small dermatome was made through which a 5 [place] Yueh catheter was inserted. Approximately 2500 ml of clear peritoneal fluid was obtained without difficulty. No complications encountered. Loculated components of ascites are noted. US/US paracentesis abd w [id number] IMPRESSION: Uncomplicated paracentesis yielding 2500 ml of peritoneal fluid.
--- NOTE | 2025-01-13 12:43 | P.PN_ITS ---
Subjective 2 Subjective: Abdomen is distended, bothering him. Hypotensive. Requests for paracentesis. Vitals/I&O/Wt Last Vital Signs Temp 97.4 F L 01/13/25 12:00 Pulse 106 H 01/13/25 12:00 Resp 18 01/13/25 11:21 BP 90/45 01/13/25 12:00 Pulse Ox 97 01/13/25 12:00 O2 Del Method Nasal Cannula 01/13/25 12:00 O2 Flow Rate 3 01/13/25 12:00 01/12/25 01/13/25 01/13/25 22:59 06:59 14:59 Intake Total 499.25 / 1109.25 149.75 / 1259.00 Output Total 200 / 200 300 / 500 Balance 299.25 / 909.25 -150.25 / 759.00 Weight last 48 hrs Weight 80.377 kg Weight 79.515 kg Physical Exam 2 Const: COMMON NORMALS: alert GENERAL APPEARANCE: cooperative O RIENTATION/CONSCIOUSNESS: Yes awake HENMT: COMMON NORMALS: oropharynx normal Neck/C-Spine: COMMON NORMALS: no JVD Resp: COMMON NORMALS: normal respiratory effort and clear to auscultation bilaterally AUSCULTATION: clear to auscultation bilaterally Cardio: COMMON NORMALS: no JVD, regular rhythm, S1 normal heart sound present, S2 normal heart sound present and No murmurs present (Cardio) RHYTHM: regular rhythm HEART SOUNDS: S1 normal heart sound present and S2 normal heart sound present GI: INSPECTION: Yes abdominal distension (Tense) Extremity: COMMON NORMALS: no joint enlargement and no pedal edema Neuro: COMMON NORMALS: moves all extremities SENSORIUM/ORIENTATION: Yes alert Skin: COMMON NORMALS: no rashes or lesions noted GENERAL SKIN EXAM: no rashes or lesions noted Urinary Catheter Management: Rivera: Cath Placed During This Visit: no Reason for Continuing Indwelling Catheter: Accurate Measurement of Urinary Output in Critically Ill Patients Data 01/13/25 04:51 01/13/25 04:51 Micro: Microbiology 01/09/25 15:30 Gram Stain - Final Peritoneal Fluid Anaerobic Culture - Preliminary Body Fluid Culture - Final 01/10/25 15:30 Gram Stain - Final Peritoneal Fluid Body Fluid Culture - Final A&P Assessment and plan (1) Septic shock: Hypotensive this morning, but with abdominal distention, tense to palpation. Possible tense ascites, discussed with him. He requests paracentesis. Discussed risk of further hypotension with paracentesis, however, with concern for risk of deterioration and obstructive shock with development of possible tense ascites. Discussed with radiologist. Paracentesis obtained, about 2500 mL drained. Continues with albumin. Levophed. Continue to support hemodynamics. Revisited with him goals of care with his nurse at bedside. On discussion of goals of care he wants to continue treatment, does not want to stop treatment at this time, however, in case of cardiopulmonary arrest would not want CPR/chest compressions, shock. Continue treatment of SBP, septic shock. Reviewed fluid cultures, so far without growth. Blood cultures so far without growth. Continue Quijano antibiotic coverage for now with meropenem. Empiric coverage with fluconazole. Maintain mean artery pressure 65. Continue with Levophed accordingly. Plan not to wean off Levophed completely overnight given concerns for hepatorenal syndrome. Check cortisol level in AM. Concern for severe hypoalbuminemia. Continue with IV albumin every 8 hourly. SIRS: Tachycardic, Febrile, Leukocytosis Source: SBP End organ damage: Septic shock Lactic acid elevated Patient did receive full 30 mL/kg BW. NICOM study showed patient to be fluid responsive. Given concerns for renal failure along with severe ascites for now hold off on IV fluids. Echocardiogram results appreciated. No good window seen on echocardiogram. Monitor blood pressures. Keep mean artery pressure 65 mmHg. Wean Levophed accordingly. Add midodrine 10 mg oral 3 times daily. Follow-up blood culture, appreciate urinalysis, urine culture, MRSA swab negative. Appreciate fluid studies to be concerning for significant SBP. Follow-up fluid cultures. Empirically continue with IV vancomycin and meropenem for now. Continue azithromycin for 3-day course. As patient remains critically sick given the MRSA swab was negative for now we will continue with IV vancomycin. Patient remains oliguric. Daily vancomycin random levels. Leukocytosis: Could be in setting of sepsis versus leukemoid reaction. Antibiotic as above. Check peripheral smear. (2) Spontaneous bacterial peritonitis: Appreciate fluid studies consistent with SBP. Follow-up cultures. Continue empiric antibiotic as above. Underwent paracentesis on 01/09 and 01/10 and 01/13 Follow-up fluid cultures. Fluid studies consistent with SBP. (3) Hepatorenal syndrome: Continue Levophed. Octreotide. Albumin. Midodrine. Will discontinue IV fluids for now. (4) Acute kidney injury: Reviewed BUN, creatinine with slight improvement per creatinine down to 2.6. Kidney function stable. Slight improvement in BUN. Stable sodium and potassium level. Strict input and output output charting. Medical reconciliation done for nephrotoxic drugs. Associated with oliguria. Albumin level is improving. IV Lasix 80 mg one-time. If remains oliguric will plan to consult nephrology for further recommendations. No electrolyte abnormality. Continue to monitor renal functions. (5) Encephalopathy due to ammonia: With improvement. She is awake and alert. Interacting. Continue with lactulose 4 times daily. Continue with IV thiamine 100 mg daily. (6) Elevated lactic acid level: Most likely in setting of sepsis and liver cirrhosis. (7) Supratherapeutic INR: Secondary to liver cirrhosis. Post 2 units of FFP. (8) Hypoalbuminemia: (9) Alcoholic cirrhosis of liver: Reviewed hepatitis panel, HIV. Child Patel score: 11. Child class C. (10) Decompensated cirrhosis: (11) Ascites: (12) Chronic indwelling Rivera catheter: Replaced on arrival to the ER on 01/09. Plan Guarded prognosis. Full code Patient having recurrent episodes of nausea and vomiting. Switch to full liquid diet. Protonix for PUD prophylaxis Supratherapeutic INR. Hold off on medical prophylaxis. scd. Goals of care discussion: As above on additional discussion in case of cardiopulmonary arrest would not want CPR/chest compressions/shocks. Does want to continue medical treatment, is not ready to discontinue treatment at this time. In case he could not make decisions for himself he is okay with us reaching out to his sister. PDMP PDMP Reviewed: Not Reviewed Attestations 2 Medical Necessity Statement*: Continue admission for assessment management of sepsis secondary to SBP, septic shock, hepatorenal syndrome, with NIURKA, and gentleman with underlying liver cirrhosis. Coding Level of Care Code Critical Care >/= 30 minutes Critical care time (in minutes): 40 The high probability of a clinically significant, sudden or life threatening deterioration, as referenced in this documentation, required my full and direct attention, intervention and personal management. The critical care time shown is in addition to time spent performing any reported separately billable procedures and includes the following: [x] Data and vital sign review and interpretation [x ] Patient assessment, examination and intervention [x] Medication orders and management [x] Patient/Family updates as able [x] Care Coordination and Documentation. Diagnoses Septic shock A41.9; R65.21 Spontaneous bacterial peritonitis K65.2 Hepatorenal syndrome K76.7 Acute kidney injury N17.9 Encephalopathy due to ammonia T59.891A; G92.8 Elevated lactic acid level R79.89 Supratherapeutic INR R79.1 Hypoalbuminemia E88.09 Alcoholic cirrhosis of liver K70.30 Decompensated cirrhosis K72.90; K74.60 Ascites R18.8 Chronic indwelling Rivera catheter Z97.8
[2025-01-13] MEDS: norepinephrine 4 MG/250 ML BAG 45 MG IV ×2 (12:49→18:08)
[2025-01-13] MEDS: fluconazole premix 200 MG/100 ML PREMIX 100 MG IV (13:59)
[2025-01-13] MEDS: quetiapine 25 mg Tablet 50 MG PO (20:17)
[2025-01-13] MEDS: sennosides 8.6 mg Tablet 17.2 MG PO (20:17)
[2025-01-13 21:07] LABS: Glucose Point of Care 168 mg/dL (70-110)
[2025-01-14] VITALS (89 sets, daily range): BP systolic 76–120; BP diastolic 49–82; PULSE 91–117; RESP 14–27; TEMP 36.7–36.9; O2SAT 88–100
[2025-01-14] MEDS: albumin 25 G/100 ML BAG 60 G IV ×3 (01:21→16:42)
[2025-01-14] MEDS: norepinephrine 4 MG/250 ML BAG 30 MG IV ×2 (01:41→17:00)
[2025-01-14 07:06] LABS: Basophils # 0.1 10^3/uL (0.0-0.1); Basophils % 0.3 %; Eosinophils # 0.3 10^3/uL (0.0-0.8); Eosinophils % 0.6 %; Hematocrit 24.6 % (37-53); Lymphocytes # 2.3 10^3/uL (0.8-4.8); Lymphocytes % 5.2 %; Mean Corpuscular HGB Conc 32.1 g/dL (30-55); Mean Corpuscular Hemoglobin 30.5 pg (27-33); Monocytes # 1.4 10^3/uL (0.2-0.9); Neutrophils # 39.72 10^3/uL (1.8-7.7); Neutrophils % 88.5 %; Nucleated Red Blood Cells % 0 %; Platelet Count 89 10^3/cmm (157-399); Red Blood Count 2.59 10^6/uL (3.85-5.65); Red Cell Distribution Width 16.7 % (12.1-15.1)
[2025-01-14 07:19] LABS: Alanine Aminotransferase 7 U/L (0-41); Albumin Level 3.4 g/dL (3.5-5.2); Alkaline Phosphatase 149 U/L (40-130); Blood Urea Nitrogen 42 mg/dL (8-23); Carbon Dioxide 20 mmol/L (22-29); Chloride 105 mmol/L (98-107); Creatinine Clr Calc Pharmacy 35.1515; Globulin 1.8 g/dL (1.3-4.6); Glomerular Filtration Rate 30.3 mL/min (90-130); Glucose 124 mg/dL (65-115); Osmolality Calculated 296 mOsm/kg (285-295); Sodium 137 mmol/L (136-145); Total Bilirubin 0.8 mg/dL (0.15-1.2); Total Protein 5.2 g/dL (6.6-8.7)
[2025-01-14 07:20] LABS: Vancomycin Trough 16.8 ug/mL (10-15)
[2025-01-14 07:31] LABS: Anion Gap 16.4 (5-19); Potassium 4.4 mmol/L (3.5-5.1)
[2025-01-14 07:32] LABS: Aspartate Amino Transferase 26 U/L (0-40)
[2025-01-14 07:56] LABS: White Blood Count 44.84 10^3/uL (3.29-11.43)
[2025-01-14 07:57] LABS: Slide Review Slide Review Perform
[2025-01-14 08:02] LABS: Glucose Point of Care 112 mg/dL (70-110)
[2025-01-14] MEDS: rifaximin 200 mg Tablet PO ×3 (08:49→21:03)
[2025-01-14] MEDS: midodrine 5 mg TABLET 10 MG PO ×3 (08:49→21:02)
[2025-01-14] MEDS: docusate sodium 100 mg Capsule 200 MG PO (08:49)
[2025-01-14] MEDS: ipratropium-albuterol 3 mL Neb INHALATION ×5 (08:49→23:59)
[2025-01-14] MEDS: folic acid 1 mg Tablet PO (08:50)
[2025-01-14] MEDS: thiamine 100 mg/mL 2mL SDV IVP (08:50)
[2025-01-14] MEDS: metOLazone 5 MG Tablet PO (08:50)
[2025-01-14] MEDS: pantoprazole 40 mg SDV IVP ×2 (08:50→21:02)
[2025-01-14] MEDS: meropenem 500 mg SDV IVP ×2 (08:51→21:02)
[2025-01-14] MEDS: vancomycin 500 MG in sodium chloride 0.9% (plus) 100 ML 200 MG IV (08:52)
[2025-01-14] MEDS: lactulose oral liq 20 gm/30 mL UDC PO (08:56)
[2025-01-14] MEDS: ondansetron 2 mg/ML SDV 2 mL 4 MG IVP (09:23)
[2025-01-14] MEDS: norepinephrine 4 MG/250 ML BAG 37.5 MG IV (09:42)
--- NOTE | 2025-01-14 12:16 | P.PN_ITS ---
Subjective 2 Subjective: Patient is awake. Inquires about discharge in the hospital. We discussed his ongoing critical illness and poor response to treatment. He reports abdominal discomfort. Denies fevers or chills. Discussed plan of care. I called and spoke to his sister who is his next of kin. I discussed patient's critical illness and poor response to therapy. I let her know that I am concerned the patient may not recover from this illness. She did not appear to know he had liver disease. She had no he had extensive alcohol history. I strongly advise she and anyone else come see the patient given how ill he is exceptionally poor prognosis. She states that she did not think she could probably find a ride here. She states if anything happens to him, to please let her know. Medications: Reviewed: Yes Vitals/I&O/Wt Last Vital Signs Temp 98.1 F 01/14/25 08:00 Pulse 109 H 01/14/25 12:00 Resp 17 01/14/25 12:00 BP 96/71 01/14/25 08:00 Pulse Ox 92 01/14/25 12:00 O2 Del Method Nasal Cannula 01/14/25 12:00 O2 Flow Rate 3 01/14/25 12:00 01/13/25 01/14/25 01/14/25 22:59 06:59 14:59 Intake Total 1407.75 / 3440.75 316.5 / 3757.25 250 / 250 Output Total 350 / 2850 250 / 3100 Balance 1057.75 / 590.75 66.5 / 657.25 250 / 250 Weight last 48 hrs Weight 80.558 kg Weight 80.377 kg Physical Exam 2 Narrative: General: Patient is awake. Frail-appearing. Head: Temporal wasting. Neck: No JVD. Cardiovascular: Tachycardic. No gallops. No murmurs. Bilateral lower extremity edema. Lungs: Breath sounds are slightly diminished, accessory muscle use, tachypnea present or wheezes. Skin: No jaundice. No rashes. Abdomen: Abdomen is markedly distended. Genito Urinary: Genital exam not performed since complaints not related. Rectal: Rectal exam not performed since no symptoms indicated blood loss. Extremities: No cyanosis or clubbing. Musculoskeletal: No erythematous joints. Neurological: No myoclonus. Urinary Catheter Management: Rivera: Cath Placed During This Visit: no Reason for Continuing Indwelling Catheter: Accurate Measurement of Urinary Output in Critically Ill Patients Data 01/14/25 06:55 01/14/25 06:55 Micro: Microbiology 01/09/25 01:48 Blood Culture - Final Blood NO GROWTH AFTER 5 DAYS 01/09/25 00:09 Blood Culture - Final Blood NO GROWTH AFTER 5 DAYS 01/09/25 15:30 Gram Stain - Final Peritoneal Fluid Anaerobic Culture - Preliminary Body Fluid Culture - Final 01/10/25 15:30 Gram Stain - Final Peritoneal Fluid Body Fluid Culture - Final A&P Assessment and plan (1) Septic shock: Patient not responding to treatment as intended Continue midodrine 10 mg 3 times daily Continue Levophed support for MAP goal of at least 60 mmHg Following cultures Continue broad-spectrum antibiotics Revisited with him goals of care with his nurse at bedside. On discussion of goals of care he wants to continue treatment, does not want to stop treatment at this time, however, in case of cardiopulmonary arrest would not want CPR/chest compressions, shock. Continue treatment of SBP, septic shock. Reviewed fluid cultures, so far without growth. Blood cultures so far without growth. Continue Quijano antibiotic coverage for now with meropenem. Empiric coverage with fluconazole. Maintain mean artery pressure 65. Continue with Levophed accordingly. Plan not to wean off Levophed completely overnight given concerns for hepatorenal syndrome. Check cortisol level in AM. Concern for severe hypoalbuminemia. Continue with IV albumin every 8 hourly. SIRS: Tachycardic, Febrile, Leukocytosis Source: SBP End organ damage: Septic shock Lactic acid elevated Patient did receive full 30 mL/kg BW. NICOM study showed patient to be fluid responsive. Given concerns for renal failure along with severe ascites for now hold off on IV fluids. Echocardiogram results appreciated. No good window seen on echocardiogram. Monitor blood pressures. Keep mean artery pressure 65 mmHg. Wean Levophed accordingly. Add midodrine 10 mg oral 3 times daily. Follow-up blood culture, appreciate urinalysis, urine culture, MRSA swab negative. Appreciate fluid studies to be concerning for significant SBP. Follow-up fluid cultures. Empirically continue with IV vancomycin and meropenem for now. Continue azithromycin for 3-day course. As patient remains critically sick given the MRSA swab was negative for now we will continue with IV vancomycin. Patient remains oliguric. Daily vancomycin random levels. Leukocytosis: Could be in setting of sepsis versus leukemoid reaction. Antibiotic as above. Check peripheral smear. (2) Spontaneous bacterial peritonitis: Status post paracentesis on 01/09 and 01/10 and 01/13 (3) Hepatorenal syndrome: Continue Levophed. Octreotide. Albumin. Midodrine. (4) Acute kidney injury: Remains in persistent renal failure Renally dose medications Strict I's and O's (5) Encephalopathy due to ammonia: Acute hepatic encephalopathy Continue with lactulose 4 times daily. Continue with IV thiamine 100 mg daily. (6) Elevated lactic acid level: (7) Supratherapeutic INR: Secondary to liver cirrhosis. Status post 2 units of FFP. (8) Hypoalbuminemia: Severe protein calorie malnutrition (9) Alcoholic cirrhosis of liver: Acute decompensated alcoholic liver cirrhosis with ascites, hepatic encephalopathy Child Patel score: 11. Child class C. (10) Decompensated cirrhosis: (11) Ascites: (12) Chronic indwelling Rivera catheter: Replaced on arrival to the ER on 01/09. Plan DVT prophylaxis: SCD CODE STATUS: Limited code. No chest compressions or CPR. PDMP PDMP Reviewed: Not Reviewed Attestations 2 Medical Necessity Statement*: Patient requires ongoing hospitalization for IV antibiotics, IV vasopressors, and supportive care. Critical Care Time: The high probability of a clinically significant, sudden or life threatening deterioration of the patient's circulatory, GI system(s) required my full and direct attention, intervention and personal management. The critical care time is as shown. This time is in addition to time spent performing any reported procedures but includes the following: [x] Data and vital sign review and interpretation [x] Patient assessment, examination and intervention [x] Documentation [x] Medication orders and management Critical Care Time (min): 35 Coding Level of Care Code Acute Code for Chg Fwd Diagnoses Septic shock A41.9; R65.21 Spontaneous bacterial peritonitis K65.2 Hepatorenal syndrome K76.7 Acute kidney injury N17.9 Encephalopathy due to ammonia T59.891A; G92.8 Elevated lactic acid level R79.89 Supratherapeutic INR R79.1 Hypoalbuminemia E88.09 Alcoholic cirrhosis of liver K70.30 Decompensated cirrhosis K72.90; K74.60 Ascites R18.8 Chronic indwelling Rivera catheter Z97.8
[2025-01-14] MEDS: fluconazole premix 200 MG/100 ML PREMIX 100 MG IV (12:45)
[2025-01-14] MEDS: hydrocortisone 100 mg/2 mL SDV IVP ×2 (12:46→17:57)
[2025-01-14 17:06] LABS: Glucose Point of Care 142 mg/dL (70-110)
--- NOTE | 2025-01-14 18:56 | PC.NURSE ---
Shift summary: Pt remains resting in bed throughout shift. He still requires Levophed gtt in addition to the Midodrine. Levophed gtt at 6 mcg/min this am, has been as high as 10mcg/min. Now at 7 mcg/min. Goals for Levophed have been changed today, MAP = or> than 60. Sinus tach noted on monitor. He remains confused. Sometimes difficult to understand with his mumbling. Then he also yells out profanity. He is utilizing 3lpm/NC. O2 sats > 94%, but he is still gasping. Mottling noted on his knees bilat. His abdomen very large, round and firm. Penile edema noted. His Urine output is poor at 150 ml. No Bm noted today. Pt's bottom is reddened and very sensitive. He states in orozco during repositioning. Protective cream has been applied throughout shift.
[2025-01-14 19:49] LABS: Amylase, Peritoneal Fluid 639 U/L
[2025-01-14] MEDS: sennosides 8.6 mg Tablet 17.2 MG PO (21:03)
[2025-01-14] MEDS: quetiapine 25 mg Tablet 50 MG PO (21:03)
[2025-01-14] MEDS: nicotine 21 mg Patch 1 PATCH TRANSDERMA (22:02)
[2025-01-14 23:50] LABS: Glucose Point of Care 95 mg/dL (70-110)
[2025-01-15] VITALS (61 sets, daily range): BP systolic 66–123; BP diastolic 44–79; PULSE 0–114; RESP 0–32; TEMP 36.1–36.6; O2SAT 75–94
[2025-01-15] MEDS: albumin 25 G/100 ML BAG 60 G IV ×3 (00:21→17:12)
[2025-01-15] MEDS: hydrocortisone 100 mg/2 mL SDV IVP ×4 (00:21→17:51)
[2025-01-15] MEDS: norepinephrine 4 MG/250 ML BAG 30 MG IV (00:23)
[2025-01-15] MEDS: ipratropium-albuterol 3 mL Neb INHALATION ×2 (03:03→07:50)
[2025-01-15 07:54] LABS: Basophils # 0.1 10^3/uL (0.0-0.1); Basophils % 0.3 %; Hematocrit 26.1 % (37-53); Lymphocytes # 1.5 10^3/uL (0.8-4.8); Lymphocytes % 3.1 %; Mean Corpuscular Volume 96.7 fl (82-101); Mean Platelet Volume 10.6 fL (7.4-10.4); Monocytes % 2.1 %; Neutrophils # 43.37 10^3/uL (1.8-7.7); Neutrophils % 91.7 %; Nucleated Red Blood Cells % 0 %; Platelet Count 117 10^3/cmm (157-399); Red Cell Distribution Width 17.1 % (12.1-15.1)
[2025-01-15 08:02] LABS: White Blood Count 47.31 10^3/uL (3.29-11.43)
[2025-01-15 08:09] LABS: Vancomycin Trough 17.9 ug/mL (10-15)
[2025-01-15 08:29] LABS: Alanine Aminotransferase 7 U/L (0-41); Albumin Level 4.1 g/dL (3.5-5.2); Alkaline Phosphatase 151 U/L (40-130); Aspartate Amino Transferase 18 U/L (0-40); Blood Urea Nitrogen 44 mg/dL (8-23); Calcium 8.8 mg/dL (8.5-10.5); Carbon Dioxide 19 mmol/L (22-29); Chloride 108 mmol/L (98-107); Creatinine Clr Calc Pharmacy 33.5982; Globulin 1.9 g/dL (1.3-4.6); Glomerular Filtration Rate 28.8 mL/min (90-130); Glucose 162 mg/dL (65-115); Magnesium 1.9 mg/dL (1.7-2.3); Osmolality Calculated 309 mOsm/kg (285-295); Phosphorus 5.3 mg/dL (2.5-4.5); Sodium 142 mmol/L (136-145); Total Bilirubin 0.6 mg/dL (0.15-1.2)
[2025-01-15 08:32] LABS: Anion Gap 18.7 (5-19); Potassium 3.7 mmol/L (3.5-5.1)
[2025-01-15] MEDS: midodrine 5 mg TABLET 10 MG PO ×2 (09:26→14:43)
[2025-01-15] MEDS: docusate sodium 100 mg Capsule 200 MG PO (09:26)
[2025-01-15] MEDS: rifaximin 200 mg Tablet PO (09:26)
[2025-01-15] MEDS: lactulose oral liq 20 gm/30 mL UDC PO ×2 (09:27→17:21)
[2025-01-15] MEDS: folic acid 1 mg Tablet PO (09:27)
[2025-01-15] MEDS: pantoprazole 40 mg SDV IVP (09:27)
[2025-01-15] MEDS: meropenem 500 mg SDV IVP (09:28)
[2025-01-15] MEDS: thiamine 100 mg/mL 2mL SDV IVP (09:29)
--- NOTE | 2025-01-15 09:30 | PC.NURSE ---
Pt sat up in chair for almost 2 hours. He requires 2 assist, gait belt for transferring. He does not stand up straight and is a difficult transfer. Pericare provided once he was back in the bed. His bottom is very reddened with 2 opened areas, each bottock near coccyx. The butterfly/xlarge optifoam applied to his bottom.
[2025-01-15] MEDS: vancomycin 500 MG in sodium chloride 0.9% (plus) 100 ML 200 MG IV (09:31)
--- NOTE | 2025-01-15 10:55 | P.PN_ITS ---
Subjective 2 Subjective: Sister eventually made at bedside yesterday. I spoke with her. She reports that she had picked up his lawn using the nursing facility and she does not want him to return there. He is also not allowed to return to his home. Overnight, patient did show some improvement in hemodynamics. He is now off the Levophed support. He is adamant he wants to get out of hospital as soon as possible. Discussed disposition needs to be determined. Medications: Reviewed: Yes Vitals/I&O/Wt Last Vital Signs Temp 97.9 F 01/15/25 04:30 Pulse 112 H 01/15/25 07:59 Resp 22 H 01/15/25 07:50 BP 93/55 01/15/25 06:00 Pulse Ox 92 01/15/25 07:50 O2 Del Method Nasal Cannula 01/15/25 07:50 O2 Flow Rate 4 01/15/25 07:50 01/14/25 01/15/25 01/15/25 22:59 06:59 14:59 Intake Total 969.312 / 1850.000 453.125 / 2303.125 Output Total 150 / 150 150 / 300 Balance 819.312 / 1700.000 303.125 / 2003.125 Weight last 48 hrs Weight 80.422 kg Weight 80.558 kg Physical Exam 2 Narrative: General: Patient is awake. Chronically ill-appearing. Conversational but much of his speech is incomprehensible. Slightly agitated at times. Head: Temporal wasting. Neck: No JVD. Cardiovascular: Tachycardic. No gallops. No murmurs. Persistent bilateral lower extremity edema. Lungs: Breath sounds are diminished, accessory muscle use, conversational dyspnea. On supplemental oxygen support. Skin: No jaundice. No rashes. Abdomen: Abdomen is markedly distended, similar to prior exam. Extremities: No cyanosis or clubbing. Musculoskeletal: No erythematous joints. Neurological: No myoclonus. Urinary Catheter Management: Rivera: Cath Placed During This Visit: no Reason for Continuing Indwelling Catheter: Accurate Measurement of Urinary Output in Critically Ill Patients Data 01/15/25 07:31 01/15/25 07:31 Micro: Microbiology 01/10/25 10:27 Blood Culture - Final Blood NO GROWTH AFTER 5 DAYS 01/10/25 10:21 Blood Culture - Final Blood NO GROWTH AFTER 5 DAYS 01/09/25 15:30 Gram Stain - Final Peritoneal Fluid Anaerobic Culture - Preliminary Body Fluid Culture - Final A&P Assessment and plan (1) Septic shock: Levophed weaned off overnight Continue midodrine 10 mg 3 times daily Following cultures Continue broad-spectrum antibiotics with meropenem No culture evidence of MRSA, discontinue vancomycin Continue IV systemic steroids (2) Spontaneous bacterial peritonitis: Status post paracentesis on 01/09 and 01/10 and 01/13 His abdomen is severely distended, he will eventually need repeat paracentesis (3) Hepatorenal syndrome: Continue midodrine Continue albumin Strict I's and O's (4) Acute kidney injury: Remains in persistent renal failure Renally dose medications Strict I's and O's (5) Encephalopathy due to ammonia: Acute hepatic encephalopathy Continue lactulose Continue rifaximin, dose adjusted Continue thiamine, route adjusted (6) Elevated lactic acid level: (7) Supratherapeutic INR: Secondary to liver cirrhosis. Status post 2 units of FFP. (8) Hypoalbuminemia: Severe protein calorie malnutrition (9) Alcoholic cirrhosis of liver: Acute decompensated alcoholic liver cirrhosis with ascites, hepatic encephalopathy Child Patel score: 11. Child class C. Poor prognosis (10) Decompensated cirrhosis: (11) Ascites: (12) Chronic indwelling Rivera catheter: Replaced on arrival to the ER on 01/09. Plan DVT prophylaxis: SCD CODE STATUS: Limited code. No chest compressions or CPR. PDMP PDMP Reviewed: Not Reviewed Attestations 2 Medical Necessity Statement*: Patient requires ongoing hospitalization for IV steroids, IV antibiotics, electrolyte management, supportive care Coding Level of Care Code Acute Code for [facility] Diagnoses Septic shock A41.9; R65.21 Spontaneous bacterial peritonitis K65.2 Hepatorenal syndrome K76.7 Acute kidney injury N17.9 Encephalopathy due to ammonia T59.891A; G92.8 Elevated lactic acid level R79.89 Supratherapeutic INR R79.1 Hypoalbuminemia E88.09 Alcoholic cirrhosis of liver K70.30 Decompensated cirrhosis K72.90; K74.60 Ascites R18.8 Chronic indwelling Rivera catheter Z97.8
[2025-01-15 11:17] LABS: Glucose Point of Care 241 mg/dL (70-110)
[2025-01-15 12:18] LABS: Glucose Point of Care 165 mg/dL (70-110)
[2025-01-15] MEDS: oxyCODONE 5 mg IR Tab/Cap PO (14:44)
[2025-01-15] MEDS: ondansetron 2 mg/ML SDV 2 mL 4 MG IVP (14:55)
[2025-01-15 17:22] LABS: Glucose Point of Care 240 mg/dL (70-110)
[2025-01-15] MEDS: norepinephrine 4 MG/250 ML BAG 7.5 MG IV (17:47)
--- NOTE | 2025-01-15 18:29 | PC.NURSE ---
Shift summary: Pt remains resting in the bed throughout this shift. He was able to state his and the president this am. He was insistent on getting out of here due to his money. He has gasped for breaths throughout the shift. O2 has been increased to 6lpm/NC. His highest O2 sat today has been 90% briefly. It has hovered around 88%. He has removed the O2 sensor and his nasal cannula repeatedly this shift. His o2 sats drop to 78% at these times. Lungs sounds are coarse in the bases. He has yelled out for repositioning, at times it has been every 2 minutes. At times unable to repositioned him to his satisfaction. He has wanted to be up in bed, HOB at 90 and his head extended past the top of the mattress. He wanted to be turned with his bottom toward the closet door 9 On his left) He has been completely left lateral and he still would call out about that. He has cussed and gasped for breath most of the shift. He is starting to just stare straight ahead. He has not ate today nor has he had much liquid intake to speak of, Mostly to swallow pills. His abdomen is large, firm and distended again. Optifoam remains intact on his bottom. His knees down to his feet have been mottled. Urine output only 125ml. He has not had a BM today. He needed pain meds once this shift. Levophed restarted. He is failing. Hospice consult started today.
[2025-01-15] MEDS: morphine 4 mg/mL SDV 1 mL 2 MG IVP (20:13)
--- NOTE | 2025-01-15 22:42 | PC.NURSE ---
Belongs at nursing station, sister Yamile to molded goods spot picker in am.
--- NOTE | 2025-01-15 23:14 | PC.NURSE ---
1927 Patient Yannick Miles- icu8 ( icu only) agonal to chain sousa respirations, mottled to abd, on lev at 10, 92/52 bp , hr 104- pupils unequal - intermittently unresponsive. Hospice consulted today Dr. Garcia updated by dayshift- appears to be actively dying. Non verbal at this time. Restless. Dr. Espinoza called re pain medication. Questions regarding code status reviewed as icu omar on code status. Instructed to contact Dr. Garcia- done. Order for morphine given and relayed Sister number to Dr. Garcia to discuss code status as o2 saturations in 70's and keeps pulling off o2 then becomes agonal breathing. Morphine-given. code status changed to DNR/AND. 821 Patient PEA rate 5 agonal breathing. Asystole at 2051 Time of called. Jackelyn Luevano RN and Selwyn Lawrence RN confirmed. Sister updated on demise to bead picker belongings in morning and reach out to executive housekeeper with arrangements. MTS called referral code [id number] decline as canidate - also decline by saving sight. [place] [facility] [place] 2230. Dr. Garcia to sign certificate and Dr. Espinoza hospitalist made aware of demise.
--- NOTE | 2025-01-16 01:33 | PC.NURSE ---
Addendum entered by Bailey Nur RN 01/16/25 01:35: Witnessed waste of 2 mg IVP morphine. Original Note: 2012 Wasted 2 mg of morphine iv with Bailey Nur RN.
--- NOTE | 2025-01-16 12:48 | P.DES_ITS ---
Discharge Providers DDS Date of Admission: 01/09/25 03:11 Date Summary Completed: 01/16/25 Attending Provider at Admission: Sandra Campuzano MD Attending Provider at Discharge: Justin Garcia MD DS Diagnoses Hospital Diagnoses (1) Septic shock: (2) Spontaneous bacterial peritonitis: (3) Hepatorenal syndrome: (4) Acute kidney injury: (5) Encephalopathy due to ammonia: (6) Elevated lactic acid level: (7) Supratherapeutic INR: (8) Hypoalbuminemia: (9) Alcoholic cirrhosis of liver: (10) Decompensated cirrhosis: (11) Ascites: (12) Chronic indwelling Rivera catheter: Reason for Visit Reason for Visit abdomen pain, sob Summary Summary Summary: Yannick Miles is a 64-year-old male with a past medical history significant for alcohol use disorder with alcohol abuse, tobacco use disorder, COPD, congestive heart failure, hypertension, traumatic brain injury who presented with chest pains, found to have septic shock with spontaneous bacterial peritonitis and multifocal bacterial pneumonia, severe ascites in the setting of decompensated alcoholic liver cirrhosis, COPD exacerbation, lactic acidosis, acute renal failure consistent with hepatorenal syndrome, hyperkalemia, and multiple other hematologic/metabolic derangements. Patient was treated with vasopressor support, broad-spectrum antibiotics, HRS treatment, and intensive care. He failed to respond to treatment as intended. Despite intensive care, patient continued to decline. He was initially limited code transition to DNR per family request. on 01/15/25 at 2051. Additional Data Family: contacted Attending/PCP notified?: Attending notified Advance directives?: No Discharge Plan Discharge Patient Disposition: Condition: Prescriptions: No Action multivitamin Tablet 1 tab PO DAILY famotidine 20 mg Tablet 20 mg PO BID magnesium hydroxide [Milk of Magnesia] 400 mg/5 mL Suspension 30 ml PO DAILY PRN (Reason: Constipation) bisacodyl 10 mg Suppository 10 mg RI DAILY PRN (Reason: Constipation) vitamin B complex Tablet 1 tab PO DAILY folic acid 1 mg Tablet 1 mg PO DAILY furosemide 20 mg Tablet 20 mg PO DAILY alum-mag hydroxide-simeth [Mylanta] 200-200-20 mg/5 mL Suspension 30 ml PO Q2H PRN (Reason: Heartburn) Rx Instructions: administer between meals and at bedtime polyethylene glycol 3350 [Miralax] 17 gram/dose Powder 17 g PO DAILY ondansetron 4 mg Tablet,Disintegrating 4 mg PO Q6H PRN (Reason: Nausea And Vomiting) acetaminophen [Tylenol Extra Strength] 500 mg Capsule 500 mg PO Q6H PRN (Reason: Pain) albuterol sulfate 2.5 mg/0.5 mL Solution For Nebulization 5 mg INHALATION QID PRN (Reason: Shortness Of Breath) Referrals: [facility] [Outside] Patient Instructions: Opioid Safety Probable Cause of Probable cause of : Cardiac arrest DS Attestations Time Spent in /Discharge Care*: greater than 30 min Quality - AMI: AMI present?: No Quality - Stroke: CVA present?: No Symptom Onset Unknown: No Quality - VTE: VTE present?: No Deep Vein Thrombosis/Pulmonary Embolism Present on Admission: No Coding Level of Care Code Acute Code for g Fwd Diagnoses Septic shock A41.9; R65.21 Spontaneous bacterial peritonitis K65.2 Hepatorenal syndrome K76.7 Acute kidney injury N17.9 Encephalopathy due to ammonia T59.891A; G92.8 Elevated lactic acid level R79.89 Supratherapeutic INR R79.1 Hypoalbuminemia E88.09 Alcoholic cirrhosis of liver K70.30 Decompensated cirrhosis K72.90; K74.60 Ascites R18.8 Chronic indwelling Rivera catheter Z97.8
== END 2025-01-15 20:52 | disposition expired | DRG 871 ==
LOC: ER 01-09 03:13 → ER IP 01-09 05:09 → ICU 01-09 06:16
PROVIDERS: Internal Medicine; Radiology Neuroradiology; Student in an Organized Health Care Education/Training Program; Admitting Provider Internal Medicine; Emergency Provider Emergency Medicine; Visit Provider Internal Medicine
DX: A41.9 Sepsis, unspecified organism (principal); J18.9 Pneumonia, unspecified organism; R65.21 Severe sepsis with septic shock; K65.2 Spontaneous bacterial peritonitis; K76.7 Hepatorenal syndrome; N17.9 Acute kidney failure, unspecified; G93.49 Other encephalopathy; J44.1 Chronic obstructive pulmonary disease with (acute) exacerbation; E87.20 Acidosis, unspecified; R79.1 Abnormal coagulation profile; E88.09 Other disorders of plasma-protein metabolism, not elsewhere classified; K70.31 Alcoholic cirrhosis of liver with ascites; I50.9 Heart failure, unspecified; E87.5 Hyperkalemia; Z66 Do not resuscitate; F17.210 Nicotine dependence, cigarettes, uncomplicated; R11.2 Nausea with vomiting, unspecified; Z96.0 Presence of urogenital implants; Z87.820 Personal history of traumatic brain injury
CPT/HCPCS: 36415; 36416; 36430; 36573; 36592; 36600; 49083; 71045; 71250; 74176; 80048; 80051; 80053; 80076; 80202; 80503; 81001; 82042; 82140; 82150; 82330; 82465; 82533; 82607; 82746; 82805; 82945; 82962; 83036; 83540; 83550; 83605; 83615; 83735; 83880; 83986; 84075; 84100; 84145; 84157; 84315; 84443; 84478; 84484; 84560; 85007; 85025; 85610; 85730; 86140; 86403; 86705; 86706; 86709; 86803; 86850; 86900; 86927; 87015; 87040; 87070; 87075; 87086; 87116; 87205; 87206; 87340; 87637; 87801; 87806; 89050; 93005; 93306; 93970; 94640; 94664; 96365; 96367; 96374; 96375; 96376; 99285; C1751; J0456; J1450; J1720; J1938; J2020; J2185; J2270; J2405; J2470; J2543; J2919; J3370; J3372; J3411; J7030; J7040; J7042; J7050; J9999; P9017; P9046